=== PATIENT | female | born 1960 | race Caucasian/White ===

== ENCOUNTER 2017-04-08 17:30 | Emergency (ER) | payer MEDICARE, MEDICAID ==
[~2017-04-08] VITALS: Ht 175.3 cm; Wt 72.7 kg
[~2017-04-08 17:30] MED LIST: ALPR-164 PO; AMLO2.5T PO; ASPI-1265 PO; ATOR10TA70 PO; CEPH500C5 PO; COU5T PO; DICY10CA88 PO; DOCU250C87 PO; ENOX60SY7 SQ; EPIN0.3P8 IM; FAMO10TA89 PO; HYDR-3972 PO; LISI10TA4 PO; PHEN-873 PO; SOTA80TA69 PO; TRAM50TA2 PO; TRAZ-146 PO
[2017-04-08] MEDS ORDERED: ipratropium/albuterol 3ml nebule NEB ONE (17:55)
[2017-04-08 18:12] LABS: BASOPHILS % (AUTO) 0.2 % (0-1); EOSINOPHILS # (AUTO) 0.1 X10'3 (0-0.9); EOSINOPHILS % (AUTO) 0.9 % (0-6); HEMATOCRIT 39.9 % (35.0-45.0); HEMOGLOBIN 14.1 g/dl (12.0-16.0); LYMPHOCYTES # (AUTO) 2.1 X10'3 (1.1-4.8); LYMPHOCYTES % (AUTO) 19.1 % (21-51); MEAN CORPUSCULAR HEMOGLOBIN 32.4 PG (27.0-31.0); MEAN CORPUSCULAR HGB CONC 35.5 % (33.0-36.5); MEAN CORPUSCULAR VOLUME 91.3 FL (78-98); MEAN PLATELET VOLUME 7.2 FL (7.4-10.4); MONOCYTES # (AUTO) 0.8 X10'3 (0-0.9); NEUTROPHILS # (AUTO) 7.9 X10'3 (1.8-7.7); NEUTROPHILS % (AUTO) 72.8 % (42-75); PLATELET COUNT 323 X10'3 (140-440); RED BLOOD COUNT 4.37 X10'6 (4.20-5.60); WHITE BLOOD COUNT 10.8 X10'3 (4.5-11.0)
[2017-04-08 18:21] LABS: INR 3.1 INR; PROTHROMBIN TIME 31.1 SECONDS (9.0-12.0)
[2017-04-08 18:27] LABS: ALANINE AMINOTRANSFERASE 14 U/L (12-78); ALBUMIN 4.1 G/DL (3.4-5.0); ALKALINE PHOSPHATASE 88 IU/L (46-116); ANION GAP 10 (8-16); ASPARTATE AMINO TRANSFERASE 17 U/L (10-37); BILIRUBIN,TOTAL 0.3 MG/DL (0.1-1.0); BLOOD UREA NITROGEN 13 MG/DL (7-18); BUN/CREATININE RATIO 11.8 (6.6-38.0); CALCIUM 9.8 MG/DL (8.5-10.1); CHLORIDE 102 MMOL/L (99-107); GLUCOSE 93 MG/DL (70-104); POTASSIUM 3.5 MMOL/L (3.5-5.1); SODIUM 142 MMOL/L (135-145); TOTAL CARBON DIOXIDE 30.3 MMOL/L (24-32); TOTAL PROTEIN 8.4 G/DL (6.4-8.2); eGFR 51 ML/MIN
[2017-04-08] MEDS ORDERED: NICO-687 TOP (19:08)
[2017-04-08] MEDS ORDERED: LEVO500T89 PO (19:08)
[2017-04-08] MEDS ORDERED: METR500T4 PO (19:08)
[2017-04-08] MEDS ORDERED: GUAI600T45 PO (19:08)
[2017-04-08 20:38] VITALS: BP 115/79
== END 2017-04-08 20:40 | disposition home or self-care (01) ==
LOC: ER 17:30
DX: K52.9 Noninfective gastroenteritis and colitis, unspecified (principal); J06.9 Acute upper respiratory infection, unspecified; F17.210 Nicotine dependence, cigarettes, uncomplicated; E11.9 Type 2 diabetes mellitus without complications; I25.10 Atherosclerotic heart disease of native coronary artery without angina pectoris; I10 Essential (primary) hypertension; I25.2 Old myocardial infarction; K21.9 Gastro-esophageal reflux disease without esophagitis; G89.29 Other chronic pain; I49.9 Cardiac arrhythmia, unspecified; F12.10 Cannabis abuse, uncomplicated; Z90.49 Acquired absence of other specified parts of digestive tract; Z71.6 Tobacco abuse counseling; Z90.710 Acquired absence of both cervix and uterus; Z95.0 Presence of cardiac pacemaker; Z85.89 Personal history of malignant neoplasm of other organs and systems; Z88.5 Allergy status to narcotic agent; Z88.8 Allergy status to other drugs, medicaments and biological substances; Z79.82 Long term (current) use of aspirin; Z79.899 Other long term (current) drug therapy; Z79.01 Long term (current) use of anticoagulants
CPT/HCPCS: 36415; 71045; 74176; 80053; 84484; 85025; 85610; 87502; 87503; 93005; 94640; 94760; 99285; 99406

== ENCOUNTER 2017-05-08 23:25 | Inpatient (IN) | payer MEDICARE, MEDICAID ==
[~2017-05-08] VITALS: Ht 175.3 cm; Wt 76.5 kg
[~2017-05-08 23:25] MED LIST changes: -CEPH500C5 PO; +GUAI600T45 PO; +METR500T4 PO
[2017-05-08] MEDS ORDERED: normal saline 1000ML IV soln IVB ONE (23:45)
[2017-05-08] MEDS ORDERED: LORazepam 2 mg/ml vial IV ONE (23:45)
[2017-05-08] MEDS ORDERED: magnesium 2GM in 50ml NS 50 ML IV ONE (23:45)
[2017-05-08] MEDS ORDERED: diltiazem 5mg/ml 5ml inj. IV ONE (23:50)
[2017-05-09 00:08] LABS: BASOPHILS # (AUTO) 0.1 X10'3 (0-0.2); BASOPHILS % (AUTO) 1.4 % (0-1); EOSINOPHILS # (AUTO) 0.3 X10'3 (0-0.9); EOSINOPHILS % (AUTO) 3.3 % (0-6); HEMATOCRIT 36.2 % (35.0-45.0); HEMOGLOBIN 12.9 g/dl (12.0-16.0); LYMPHOCYTES # (AUTO) 2.4 X10'3 (1.1-4.8); MEAN CORPUSCULAR HEMOGLOBIN 31.5 PG (27.0-31.0); MEAN CORPUSCULAR HGB CONC 35.7 % (33.0-36.5); MEAN CORPUSCULAR VOLUME 88.3 FL (78-98); MEAN PLATELET VOLUME 8.1 FL (7.4-10.4); MONOCYTES # (AUTO) 0.4 X10'3 (0-0.9); MONOCYTES % (AUTO) 5.5 % (2-12); NEUTROPHILS # (AUTO) 4.7 X10'3 (1.8-7.7); NEUTROPHILS % (AUTO) 58.8 % (42-75); PLATELET COUNT 222 X10'3 (140-440); RED CELL DISTRIBUTION WIDTH 12.3 % (11.5-14.5); WHITE BLOOD COUNT 7.9 X10'3 (4.5-11.0)
[2017-05-09 00:29] LABS: ALANINE AMINOTRANSFERASE 21 U/L (12-78); ALBUMIN 3.9 G/DL (3.4-5.0); ALBUMIN/GLOBULIN RATIO 1.1 (1.1-1.5); ALKALINE PHOSPHATASE 76 IU/L (46-116); ANION GAP 9 (8-16); ASPARTATE AMINO TRANSFERASE 18 U/L (10-37); BILIRUBIN,TOTAL 0.2 MG/DL (0.1-1.0); BLOOD UREA NITROGEN 15 MG/DL (7-18); BUN/CREATININE RATIO 12.4 (6.6-38.0); CALCIUM 8.9 MG/DL (8.5-10.1); CHLORIDE 103 MMOL/L (99-107); CREATININE 1.21 MG/DL (0.40-0.90); GLUCOSE 216 MG/DL (70-104); POTASSIUM 3.3 MMOL/L (3.5-5.1); SODIUM 141 MMOL/L (135-145); TOTAL CARBON DIOXIDE 28.6 MMOL/L (24-32); TOTAL PROTEIN 7.6 G/DL (6.4-8.2); eGFR 46 ML/MIN
[2017-05-09 00:42] LABS: INR 1.8 INR; PARTIAL THROMBOPLASTIN TIME 27 SECONDS (22-32); PROTHROMBIN TIME 17.8 SECONDS (9.0-12.0)
[2017-05-09] MEDS ORDERED: diltiazem 30mg tablet PO ONE (01:05)
[2017-05-09] MEDS ORDERED: HYDR12.55 PO (01:45)
[2017-05-09] MEDS ORDERED: magnesium hydroxide 30ml (MOM) UD suspension PO PRN (02:40)
[2017-05-09] MEDS ORDERED: acetaminophen 325mg tablet PO PRN (02:40)
[2017-05-09] MEDS ORDERED: albuterol 2.5 MG/3 ML nebule NEB PRN (02:40)
[2017-05-09] MEDS ORDERED: mag hydrox/Alum hydrox/simeth 30ml oral suspension PO PRN (02:40)
[2017-05-09] MEDS ORDERED: magnesium 4gm in 100ml NS 100 ML IV PRN (02:40)
[2017-05-09] MEDS ORDERED: potassium Cl 20 mEq SR tablet PO PRN (02:40)
[2017-05-09] MEDS ORDERED: magnesium Cl slow-release 64mg tablet PO PRN (02:40)
[2017-05-09] MEDS ORDERED: magnesium 2GM in 50ml NS 50 ML IV PRN (02:40)
[2017-05-09] MEDS ORDERED: potassium Cl 40MEQ/NS 500ml 500 ML IV PRN ×2 (02:40)
[2017-05-09] MEDS ORDERED: ipratropium/albuterol 3ml nebule NEB PRN (02:40)
[2017-05-09] MEDS ORDERED: ondansetron/PF 4mg/2ml inj IV PRN (02:40)
[2017-05-09 03:04] LABS: HEMOGLOBIN A1C 5.6 % (4.5-6.2)
[2017-05-09] MEDS ORDERED: ALPRAZolam 0.5mg tablet PO PRN (03:45)
[2017-05-09] MEDS: potassium Cl 20mEq in NS 1,000 ML IV SCH ×2 (03:56→15:08)
[2017-05-09] MEDS: potassium Cl 20 mEq SR tablet PO PRN ×3 (07:25→18:28)
[2017-05-09] MEDS: famotidine 20mg tablet PO SCH ×2 (07:25→21:34)
[2017-05-09] MEDS: K and/or MAG REPLACEMENT MC SCH (07:25)
[2017-05-09] MEDS ORDERED: amLODIPine 2.5mg tablet PO SCH ×2 (08:00→08:03)
[2017-05-09] MEDS ORDERED: HYDROchlorothiazide 12.5mg capsule PO SCH ×2 (08:00→08:03)
[2017-05-09] MEDS ORDERED: sotalol 80mg tablet PO SCH (08:00)
[2017-05-09] MEDS ORDERED: atorvastatin 10mg tablet PO SCH ×2 (08:00→08:03)
[2017-05-09 11:11] LABS: INR 2.2 INR; PROTHROMBIN TIME 21.2 SECONDS (9.0-12.0)
[2017-05-09] MEDS ORDERED: AMLO10TA13 PO (14:52)
[2017-05-09] MEDS ORDERED: LISI40TA4 PO (14:59)
[2017-05-09] MEDS ORDERED: WARF3TAB PO (14:59)
[2017-05-09] MEDS ORDERED: WARF-55 PO (14:59)
[2017-05-09] MEDS ORDERED: OMEP-50 PO (14:59)
[2017-05-09] MEDS ORDERED: SOTA80TA PO (15:00)
[2017-05-09] MEDS ORDERED: HYDROcodone/acetaminophen 10/325mg tab PO PRN (16:45)
[2017-05-09] MEDS ORDERED: docusate sod 250mg capsule PO PRN (16:45)
[2017-05-09 19:00] VITALS: BP 142/66
[2017-05-09] MEDS ORDERED: warfarin 5mg tablet PO SCH (21:00)
[2017-05-09] MEDS: sotalol 80mg tablet PO SCH (21:33)
[2017-05-09 22:00] VITALS: BP 141/49
[2017-05-10 06:00] VITALS: BP 151/58
[2017-05-10 06:34] LABS: EOSINOPHILS # (AUTO) 0.2 X10'3 (0-0.9); EOSINOPHILS % (AUTO) 3.5 % (0-6); HEMATOCRIT 30.1 % (35.0-45.0); HEMOGLOBIN 10.6 g/dl (12.0-16.0); LYMPHOCYTES % (AUTO) 40.5 % (21-51); MEAN CORPUSCULAR HEMOGLOBIN 30.9 PG (27.0-31.0); MEAN CORPUSCULAR HGB CONC 35.2 % (33.0-36.5); MEAN CORPUSCULAR VOLUME 87.9 FL (78-98); MEAN PLATELET VOLUME 7.8 FL (7.4-10.4); MONOCYTES # (AUTO) 0.4 X10'3 (0-0.9); MONOCYTES % (AUTO) 7.6 % (2-12); NEUTROPHILS # (AUTO) 2.4 X10'3 (1.8-7.7); NEUTROPHILS % (AUTO) 47.4 % (42-75); PLATELET COUNT 185 X10'3 (140-440); RED BLOOD COUNT 3.42 X10'6 (4.20-5.60); RED CELL DISTRIBUTION WIDTH 13.1 % (11.5-14.5)
[2017-05-10 06:48] LABS: INR 1.9 INR; PROTHROMBIN TIME 18.8 SECONDS (9.0-12.0)
[2017-05-10 07:06] LABS: ALANINE AMINOTRANSFERASE 21 U/L (12-78); ALBUMIN 3.3 G/DL (3.4-5.0); ALBUMIN/GLOBULIN RATIO 1.1 (1.1-1.5); ALKALINE PHOSPHATASE 60 IU/L (46-116); ANION GAP 8 (8-16); ASPARTATE AMINO TRANSFERASE 19 U/L (10-37); BILIRUBIN,TOTAL 0.2 MG/DL (0.1-1.0); BLOOD UREA NITROGEN 14 MG/DL (7-18); BUN/CREATININE RATIO 13.3 (6.6-38.0); CALCIUM 8.7 MG/DL (8.5-10.1); CHLORIDE 109 MMOL/L (99-107); CHOLESTEROL 137 MG/DL (0-200); CREATININE 1.05 MG/DL (0.40-0.90); GLUCOSE 121 MG/DL (70-104); HDL CHOLESTEROL 23 MG/DL (35-60); LDL CHOLESTEROL 68 MG/DL (50-100); MAGNESIUM 1.9 MG/DL (1.5-2.4); POTASSIUM 4.2 MMOL/L (3.5-5.1); SODIUM 145 MMOL/L (135-145); TOTAL CARBON DIOXIDE 28.3 MMOL/L (24-32); TOTAL PROTEIN 6.4 G/DL (6.4-8.2); TRIGLYCERIDES 353 MG/DL (20-135); eGFR 54 ML/MIN
[2017-05-10] MEDS: famotidine 20mg tablet PO SCH (07:58)
[2017-05-10] MEDS: sotalol 80mg tablet PO SCH (07:58)
[2017-05-10] MEDS ORDERED: amLODIPine 5mg tablet PO SCH (08:00)
[2017-05-10] MEDS ORDERED: lisinopril 20mg tablet PO SCH (08:00)
[2017-05-10] MEDS: K and/or MAG REPLACEMENT MC SCH (08:00)
[2017-05-10 11:00] VITALS: BP 147/49
[2017-05-10] MEDS ORDERED: FENO160T13 PO (13:06)
== END 2017-05-10 15:00 | disposition home or self-care (01) | DRG 206 ==
LOC: ER 23:26 → ED HOLD 05-09 02:36 → PCU 3S 05-09 19:00
PROVIDERS: ADMIT Internal Medicine; ATTEND Family Medicine
DX: M94.0 Chondrocostal junction syndrome [Tietze] (principal); D68.9 Coagulation defect, unspecified; I48.91 Unspecified atrial fibrillation; E87.6 Hypokalemia; E78.5 Hyperlipidemia, unspecified; I10 Essential (primary) hypertension; I25.10 Atherosclerotic heart disease of native coronary artery without angina pectoris; K21.9 Gastro-esophageal reflux disease without esophagitis; R73.9 Hyperglycemia, unspecified; N28.9 Disorder of kidney and ureter, unspecified; T45.515A Adverse effect of anticoagulants, initial encounter; F41.9 Anxiety disorder, unspecified; G89.29 Other chronic pain; M19.90 Unspecified osteoarthritis, unspecified site; F17.210 Nicotine dependence, cigarettes, uncomplicated; I25.2 Old myocardial infarction; Z90.49 Acquired absence of other specified parts of digestive tract; Z90.710 Acquired absence of both cervix and uterus; Z95.0 Presence of cardiac pacemaker; Z88.5 Allergy status to narcotic agent; Z88.0 Allergy status to penicillin; Z88.2 Allergy status to sulfonamides; Z88.8 Allergy status to other drugs, medicaments and biological substances; Z79.01 Long term (current) use of anticoagulants; Z79.899 Other long term (current) drug therapy; Z85.41 Personal history of malignant neoplasm of cervix uteri; Z83.3 Family history of diabetes mellitus
CPT/HCPCS: 36415; 71045; 80053; 80061; 82948; 83036; 83735; 83880; 84484; 85025; 85610; 85730; 87070; 93306; 94760; 96365; 96375; 99285; J2060; J3475; J3490

== ENCOUNTER 2017-08-12 14:32 | Emergency (ER) | payer MEDICARE, MEDICAID ==
[~2017-08-12] VITALS: Ht 170.2 cm; Wt 78.0 kg
[~2017-08-12 14:32] MED LIST changes: -ALPR-164 PO; +AMLO10TA13 PO; -AMLO2.5T PO; -ASPI-1265 PO; -COU5T PO; -DICY10CA88 PO; -ENOX60SY7 SQ; -EPIN0.3P8 IM; +FENO160T13 PO; -GUAI600T45 PO; +HYDR12.55 PO; -LISI10TA4 PO; +LISI40TA4 PO; -METR500T4 PO; +OMEP-50 PO; -PHEN-873 PO; +SOTA80TA PO; -SOTA80TA69 PO; -TRAM50TA2 PO; -TRAZ-146 PO; +WARF-55 PO; +WARF3TAB PO
[2017-08-12] MEDS ORDERED: etomidate 2mg/ml inj. IV ONE (14:45)
[2017-08-12] MEDS ORDERED: normal saline 1000ML IV soln IVB ONE (14:45)
[2017-08-12 15:09] LABS: BASOPHILS # (AUTO) 0.1 X10'3 (0-0.2); EOSINOPHILS # (AUTO) 0.2 X10'3 (0-0.9); EOSINOPHILS % (AUTO) 1.5 % (0-6); HEMATOCRIT 33.9 % (35.0-45.0); HEMOGLOBIN 11.6 g/dl (12.0-16.0); LYMPHOCYTES # (AUTO) 3.2 X10'3 (1.1-4.8); LYMPHOCYTES % (AUTO) 26.2 % (21-51); MEAN CORPUSCULAR HEMOGLOBIN 27.1 PG (27.0-31.0); MEAN CORPUSCULAR HGB CONC 34.1 % (33.0-36.5); MEAN CORPUSCULAR VOLUME 79.5 FL (78-98); MEAN PLATELET VOLUME 8.6 FL (7.4-10.4); NEUTROPHILS # (AUTO) 7.6 X10'3 (1.8-7.7); NEUTROPHILS % (AUTO) 63.3 % (42-75); PLATELET COUNT 376 X10'3 (140-440); RED BLOOD COUNT 4.27 X10'6 (4.20-5.60); RED CELL DISTRIBUTION WIDTH 15.7 % (11.5-14.5)
[2017-08-12] MEDS ORDERED: morphine 4 MG/ML inj SYRINge IV ONE (15:15)
[2017-08-12] MEDS ORDERED: LORazepam 2 mg/ml vial ONE (15:16)
[2017-08-12 15:18] LABS: INR 2.1 INR; PROTHROMBIN TIME 20.8 SECONDS (9.0-12.0)
[2017-08-12 15:26] LABS: ALANINE AMINOTRANSFERASE 16 U/L (12-78); ALBUMIN 3.8 G/DL (3.4-5.0); ALKALINE PHOSPHATASE 94 IU/L (46-116); ANION GAP 11 (8-16); ASPARTATE AMINO TRANSFERASE 22 U/L (10-37); BILIRUBIN,TOTAL 0.2 MG/DL (0.1-1.0); BLOOD UREA NITROGEN 16 MG/DL (7-18); BUN/CREATININE RATIO 9.2 (6.6-38.0); CHLORIDE 103 MMOL/L (99-107); CREATININE 1.74 MG/DL (0.40-0.90); GLUCOSE 134 MG/DL (70-104); MAGNESIUM 1.9 MG/DL (1.5-2.4); POTASSIUM 3.9 MMOL/L (3.5-5.1); SODIUM 141 MMOL/L (135-145); TOTAL CARBON DIOXIDE 27.2 MMOL/L (24-32); TOTAL PROTEIN 7.7 G/DL (6.4-8.2); eGFR 30 ML/MIN
[2017-08-12 16:29] VITALS: BP 100/59
== END 2017-08-12 16:29 | disposition home or self-care (01) ==
LOC: ER 14:32
DX: I48.91 Unspecified atrial fibrillation (principal); I95.9 Hypotension, unspecified; I25.10 Atherosclerotic heart disease of native coronary artery without angina pectoris; I10 Essential (primary) hypertension; I25.2 Old myocardial infarction; K21.9 Gastro-esophageal reflux disease without esophagitis; E11.9 Type 2 diabetes mellitus without complications; G89.29 Other chronic pain; F12.90 Cannabis use, unspecified, uncomplicated; Z85.89 Personal history of malignant neoplasm of other organs and systems; Z90.49 Acquired absence of other specified parts of digestive tract; Z90.710 Acquired absence of both cervix and uterus; Z95.0 Presence of cardiac pacemaker; Z88.0 Allergy status to penicillin; Z88.2 Allergy status to sulfonamides; Z88.8 Allergy status to other drugs, medicaments and biological substances; Z79.899 Other long term (current) drug therapy; Z79.01 Long term (current) use of anticoagulants
CPT/HCPCS: 36415; 71045; 80053; 83735; 84484; 85025; 85610; 92960; 93005; 96374; 99285; J2270; J3490; J2060

== ENCOUNTER 2017-09-15 20:09 | Emergency (ER) | payer MEDICARE, MEDICAID ==
[~2017-09-15] VITALS: Ht 597.6 cm; Wt 82.3 kg
[2017-09-15 20:13] VITALS: BP 165/54
== END 2017-09-15 21:44 | disposition home or self-care (01) ==
LOC: ER 20:10
DX: R04.0 Epistaxis (principal); I48.91 Unspecified atrial fibrillation; I25.10 Atherosclerotic heart disease of native coronary artery without angina pectoris; I10 Essential (primary) hypertension; I25.2 Old myocardial infarction; K21.9 Gastro-esophageal reflux disease without esophagitis; E11.9 Type 2 diabetes mellitus without complications; G89.29 Other chronic pain; F12.90 Cannabis use, unspecified, uncomplicated; Z95.0 Presence of cardiac pacemaker; Z90.49 Acquired absence of other specified parts of digestive tract; Z98.890 Other specified postprocedural states; Z90.710 Acquired absence of both cervix and uterus; Z88.8 Allergy status to other drugs, medicaments and biological substances; Z88.0 Allergy status to penicillin; Z88.2 Allergy status to sulfonamides; Z88.5 Allergy status to narcotic agent; Z79.899 Other long term (current) drug therapy; Z79.01 Long term (current) use of anticoagulants
CPT/HCPCS: 99281

== ENCOUNTER 2017-11-20 14:12 | Emergency (ER) | payer MEDICARE, MEDICAID ==
[~2017-11-20] VITALS: Ht 175.3 cm; Wt 80.0 kg
[2017-11-20 14:39] LABS: BASOPHILS # (AUTO) 0.1 X10'3 (0-0.2); BASOPHILS % (AUTO) 0.7 % (0-1); EOSINOPHILS # (AUTO) 0.1 X10'3 (0-0.9); EOSINOPHILS % (AUTO) 0.6 % (0-6); HEMOGLOBIN 10.2 g/dl (12.0-16.0); LYMPHOCYTES # (AUTO) 1.9 X10'3 (1.1-4.8); LYMPHOCYTES % (AUTO) 11.7 % (21-51); MEAN CORPUSCULAR HEMOGLOBIN 22.2 PG (27.0-31.0); MEAN CORPUSCULAR HGB CONC 32.7 % (33.0-36.5); MEAN CORPUSCULAR VOLUME 67.9 FL (78-98); MEAN PLATELET VOLUME 7.4 FL (7.4-10.4); MONOCYTES # (AUTO) 1.1 X10'3 (0-0.9); MONOCYTES % (AUTO) 7.1 % (2-12); NEUTROPHILS # (AUTO) 12.9 X10'3 (1.8-7.7); NEUTROPHILS % (AUTO) 79.9 % (42-75); PLATELET COUNT 345 X10'3 (140-440); RED BLOOD COUNT 4.57 X10'6 (4.20-5.60); RED CELL DISTRIBUTION WIDTH 17.6 % (11.5-14.5); WHITE BLOOD COUNT 16.1 X10'3 (4.5-11.0)
[2017-11-20] MEDS ORDERED: normal saline 1000ML IV soln IV ONE (14:40)
[2017-11-20] MEDS ORDERED: morphine 4 MG/ML inj SYRINge IV ONE (14:40)
[2017-11-20] MEDS ORDERED: ondansetron/PF 4mg/2ml inj IV ONE (14:40)
[2017-11-20 14:46] LABS: URINE HCG NEGATIVE (NEG)
[2017-11-20 14:47] LABS: INR 3.4 INR; PROTHROMBIN TIME 34.1 SECONDS (9.0-12.0)
[2017-11-20 14:51] LABS: CLARITY,URINE CLEAR (Clear); COLOR,URINE YELLOW (Yellow); GLUCOSE, URINE NEGATIVE (Neg); KETONES,URINE NEGATIVE (Neg); LEUKOCYTE ESTERASE ,URINE NEGATIVE (Neg); NITRITES, URINE NEGATIVE (Neg); OCCULT BLOOD,URINE TRACE-INTACT (Neg); PROTEIN,URINE NEGATIVE (Neg); UROBILINOGEN,URINE 0.2 E.U/dL (0.2-1.0)
[2017-11-20 14:54] LABS: UA COLLECTION TYPE CLN CATCH MIDSTREAM
[2017-11-20 15:00] LABS: ALANINE AMINOTRANSFERASE 16 U/L (12-78); ALBUMIN 4.1 G/DL (3.4-5.0); ALBUMIN/GLOBULIN RATIO 1.1 (1.1-1.5); ALKALINE PHOSPHATASE 113 IU/L (46-116); ANION GAP 13 (8-16); ASPARTATE AMINO TRANSFERASE 20 U/L (10-37); BILIRUBIN,TOTAL 0.3 MG/DL (0.1-1.0); BLOOD UREA NITROGEN 16 MG/DL (7-18); BUN/CREATININE RATIO 11.1 (6.6-38.0); CALCIUM 9.4 MG/DL (8.5-10.1); CHLORIDE 101 MMOL/L (99-107); CREATININE 1.44 MG/DL (0.40-0.90); GLUCOSE 137 MG/DL (70-104); POTASSIUM 3.8 MMOL/L (3.5-5.1); SODIUM 140 MMOL/L (135-145); TOTAL CARBON DIOXIDE 25.8 MMOL/L (24-32); TOTAL PROTEIN 7.9 G/DL (6.4-8.2); eGFR 37 ML/MIN
[2017-11-20 15:02] LABS: BACTERIA,URINE NONE SEEN /HPF (Neg); RBC,URINE NONE SEEN /HPF (0-2); SQUAMOUS EPITHELIAL CELL,UR FEW /LPF (FEW); WBC,URINE 0-4 /HPF (0-4)
[2017-11-20] MEDS ORDERED: HYDR-569 PO (15:28)
[2017-11-20] MEDS ORDERED: CIPR-259 PO (15:28)
[2017-11-20] MEDS ORDERED: ONDA4TAB9 SL (15:28)
[2017-11-20] MEDS ORDERED: METR250T PO (15:28)
[2017-11-20 16:37] VITALS: BP 109/59
[2017-11-20 17:56] LABS: ANISOCYTOSIS 2+; PLATELET ESTIMATE NORMAL
[2017-11-20 17:57] LABS: ELLIPTOCYTES FEW; MICROCYTOSIS 2+; POLYCHROMASIA FEW; SCHISTOCYTES FEW
== END 2017-11-20 16:39 | disposition home or self-care (01) ==
LOC: ER 14:12
DX: K57.92 Diverticulitis of intestine, part unspecified, without perforation or abscess without bleeding (principal); I10 Essential (primary) hypertension; I48.91 Unspecified atrial fibrillation; I25.10 Atherosclerotic heart disease of native coronary artery without angina pectoris; I25.2 Old myocardial infarction; K21.9 Gastro-esophageal reflux disease without esophagitis; E11.9 Type 2 diabetes mellitus without complications; G89.29 Other chronic pain; F12.90 Cannabis use, unspecified, uncomplicated; F17.210 Nicotine dependence, cigarettes, uncomplicated; Z90.49 Acquired absence of other specified parts of digestive tract; Z90.710 Acquired absence of both cervix and uterus; Z95.0 Presence of cardiac pacemaker; Z88.6 Allergy status to analgesic agent; Z88.1 Allergy status to other antibiotic agents; Z88.2 Allergy status to sulfonamides; Z88.8 Allergy status to other drugs, medicaments and biological substances
CPT/HCPCS: 36415; 80053; 81001; 81025; 83605; 85025; 85610; 87040; 96361; 96374; 96375; 99284; J2270; J2405; J7030

== ENCOUNTER 2017-12-19 17:30 | Emergency (ER) | payer MEDICARE, MEDICAID ==
[~2017-12-19] VITALS: Ht 175.3 cm; Wt 78.0 kg
[~2017-12-19 17:30] MED LIST changes: +HYDR-4383 PO
[2017-12-19 18:27] LABS: BASOPHILS # (AUTO) 0.1 X10'3 (0-0.2); EOSINOPHILS # (AUTO) 0.2 X10'3 (0-0.9); HEMATOCRIT 29.4 % (35.0-45.0); HEMOGLOBIN 9.4 g/dl (12.0-16.0); LYMPHOCYTES # (AUTO) 1.9 X10'3 (1.1-4.8); LYMPHOCYTES % (AUTO) 24.6 % (21-51); MEAN CORPUSCULAR HEMOGLOBIN 22.9 PG (27.0-31.0); MEAN CORPUSCULAR HGB CONC 31.9 % (33.0-36.5); MEAN CORPUSCULAR VOLUME 71.8 FL (78-98); MEAN PLATELET VOLUME 7.5 FL (7.4-10.4); MONOCYTES # (AUTO) 0.5 X10'3 (0-0.9); MONOCYTES % (AUTO) 5.8 % (2-12); NEUTROPHILS # (AUTO) 5.2 X10'3 (1.8-7.7); NEUTROPHILS % (AUTO) 65.6 % (42-75); PLATELET COUNT 295 X10'3 (140-440); RED BLOOD COUNT 4.09 X10'6 (4.20-5.60); RED CELL DISTRIBUTION WIDTH 18.3 % (11.5-14.5); WHITE BLOOD COUNT 7.9 X10'3 (4.5-11.0)
[2017-12-19 19:05] LABS: INR 1.6 INR; PARTIAL THROMBOPLASTIN TIME 29 SECONDS (22-32); PROTHROMBIN TIME 15.8 SECONDS (9.0-12.0)
[2017-12-19 19:06] LABS: ALANINE AMINOTRANSFERASE 15 U/L (12-78); ALBUMIN 3.9 G/DL (3.4-5.0); ALBUMIN/GLOBULIN RATIO 1.1 (1.1-1.5); ALKALINE PHOSPHATASE 80 IU/L (46-116); ANION GAP 13 (8-16); ASPARTATE AMINO TRANSFERASE 19 U/L (10-37); BILIRUBIN,TOTAL 0.3 MG/DL (0.1-1.0); BLOOD UREA NITROGEN 21 MG/DL (7-18); BUN/CREATININE RATIO 12.7 (6.6-38.0); CALCIUM 9.2 MG/DL (8.5-10.1); CHLORIDE 101 MMOL/L (99-107); CREATININE 1.66 MG/DL (0.40-0.90); GLUCOSE 173 MG/DL (70-104); POTASSIUM 3.8 MMOL/L (3.5-5.1); SODIUM 139 MMOL/L (135-145); TOTAL CARBON DIOXIDE 25.5 MMOL/L (24-32); TOTAL PROTEIN 7.4 G/DL (6.4-8.2); eGFR 32 ML/MIN
[2017-12-19 19:29] VITALS: BP 111/69
[2017-12-19 19:33] LABS: COLOR,URINE YELLOW (Yellow); GLUCOSE, URINE NEGATIVE (Neg); KETONES,URINE NEGATIVE (Neg); LEUKOCYTE ESTERASE ,URINE TRACE (Neg); NITRITES, URINE NEGATIVE (Neg); OCCULT BLOOD,URINE NEGATIVE (Neg); PH,URINE 5.5 (4.8-8.0); PROTEIN,URINE NEGATIVE (Neg); UROBILINOGEN,URINE 0.2 E.U/dL (0.2-1.0)
[2017-12-19 19:45] LABS: CLARITY,URINE SLIGHTLY CLOUDY (Clear); UA COLLECTION TYPE VOIDED
[2017-12-19 19:46] LABS: BACTERIA,URINE FEW /HPF (Neg); RBC,URINE NONE SEEN /HPF (0-2); SQUAMOUS EPITHELIAL CELL,UR FEW /LPF (FEW); WBC,URINE 0-4 /HPF (0-4)
== END 2017-12-19 20:07 | disposition home or self-care (01) ==
LOC: ER 17:31
DX: R42 Dizziness and giddiness (principal); D64.9 Anemia, unspecified; I48.91 Unspecified atrial fibrillation; I25.10 Atherosclerotic heart disease of native coronary artery without angina pectoris; I10 Essential (primary) hypertension; I25.2 Old myocardial infarction; K21.9 Gastro-esophageal reflux disease without esophagitis; E11.9 Type 2 diabetes mellitus without complications; G89.29 Other chronic pain; F12.90 Cannabis use, unspecified, uncomplicated; Z90.49 Acquired absence of other specified parts of digestive tract; Z90.710 Acquired absence of both cervix and uterus; Z95.0 Presence of cardiac pacemaker; Z88.0 Allergy status to penicillin; Z88.2 Allergy status to sulfonamides; Z88.5 Allergy status to narcotic agent; Z88.1 Allergy status to other antibiotic agents; Z91.048 Other nonmedicinal substance allergy status; Z88.8 Allergy status to other drugs, medicaments and biological substances; Z79.01 Long term (current) use of anticoagulants; Z79.899 Other long term (current) drug therapy
CPT/HCPCS: 36415; 71045; 80053; 81001; 84484; 85025; 85610; 85730; 87088; 93005; 99285

== ENCOUNTER 2018-10-05 16:14 | Emergency (ER) | payer MEDICARE, MEDICAID ==
[~2018-10-05] VITALS: Ht 175.3 cm; Wt 80.9 kg
--- NOTE | 2018-10-05 16:53 | NUR ---
Eveline HUDSON PA AT BEDSIDE TO EVAL PT, PT REFERRED FROM PMD TO R/O DIVERICULITIS
[2018-10-05 17:00] LABS: URINE HCG NEGATIVE (NEG)
[2018-10-05] MEDS ORDERED: ondansetron/PF 4mg/2ml inj IV ONE ×2 (17:00→18:25)
[2018-10-05] MEDS ORDERED: normal saline 1000ML IV soln IVB ONE (17:00)
[2018-10-05 17:01] LABS: BASOPHILS # (AUTO) 0.1 X10'3 (0-0.2); EOSINOPHILS # (AUTO) 0.2 X10'3 (0-0.9); EOSINOPHILS % (AUTO) 2.3 % (0-6); HEMATOCRIT 40.9 % (35.0-45.0); HEMOGLOBIN 14.7 g/dl (12.0-16.0); LYMPHOCYTES # (AUTO) 2.6 X10'3 (1.1-4.8); LYMPHOCYTES % (AUTO) 27.4 % (21-51); MEAN CORPUSCULAR HEMOGLOBIN 33.8 PG (27.0-31.0); MEAN CORPUSCULAR HGB CONC 35.9 g/dL (33.0-36.5); MEAN PLATELET VOLUME 8.8 FL (7.4-10.4); MONOCYTES # (AUTO) 0.8 X10'3 (0-0.9); MONOCYTES % (AUTO) 8.7 % (2-12); NEUTROPHILS # (AUTO) 5.8 X10'3 (1.8-7.7); NEUTROPHILS % (AUTO) 60.6 % (42-75); PLATELET COUNT 216 X10'3 (140-440); RED BLOOD COUNT 4.35 X10'6 (4.20-5.60); RED CELL DISTRIBUTION WIDTH 13.6 % (11.5-14.5); WHITE BLOOD COUNT 9.5 X10'3 (4.5-11.0)
[2018-10-05 17:06] LABS: CLARITY,URINE SLIGHTLY CLOUDY (Clear); COLOR,URINE YELLOW (Yellow); GLUCOSE, URINE NEGATIVE (Neg); KETONES,URINE NEGATIVE (Neg); LEUKOCYTE ESTERASE ,URINE NEGATIVE (Neg); NITRITES, URINE NEGATIVE (Neg); OCCULT BLOOD,URINE SMALL (Neg); PH,URINE 5.5 (4.8-8.0); PROTEIN,URINE NEGATIVE (Neg); UROBILINOGEN,URINE 0.2 E.U/dL (0.2-1.0)
[2018-10-05] MEDS: morphine 4 MG/ML inj SYRINge IV PRN ×2 (17:06→17:33)
--- NOTE | 2018-10-05 17:08 | NUR ---
PT RECEIVING 1ST LITER NS, FAMILY AT BEDSIDE
[2018-10-05 17:10] LABS: UA COLLECTION TYPE CLN CATCH MIDSTREAM
[2018-10-05 17:11] LABS: ALANINE AMINOTRANSFERASE 21 U/L (12-78); ALBUMIN 4.1 G/DL (3.4-5.0); ALBUMIN/GLOBULIN RATIO 1.1 (1.1-1.5); ALKALINE PHOSPHATASE 66 IU/L (46-116); AMYLASE 62 U/L (25-115); ANION GAP 11 (8-16); ASPARTATE AMINO TRANSFERASE 15 U/L (10-37); BILIRUBIN,TOTAL 0.3 MG/DL (0.1-1.0); BLOOD UREA NITROGEN 15 MG/DL (7-18); BUN/CREATININE RATIO 13.4 (6.6-38.0); CHLORIDE 106 MMOL/L (99-107); CREATININE 1.12 MG/DL (0.40-0.90); GLUCOSE 116 MG/DL (70-104); LIPASE 172 U/L (73-393); SODIUM 144 MMOL/L (135-145); TOTAL CARBON DIOXIDE 27.4 MMOL/L (24-32); TOTAL PROTEIN 7.7 G/DL (6.4-8.2); eGFR 50 ML/MIN
[2018-10-05 17:29] VITALS: BP_SYST 167
[2018-10-05 17:31] LABS: WBC,URINE 0-4 /HPF (0-4)
[2018-10-05 17:32] LABS: BACTERIA,URINE NONE SEEN /HPF (Neg); SQUAMOUS EPITHELIAL CELL,UR FEW /LPF (FEW)
[2018-10-05] MEDS ORDERED: ketorolac trometh. 30mg/ml inj. IV ONE (18:25)
[2018-10-05] MEDS ORDERED: morphine 4 MG/ML inj SYRINge IV ONE (18:25)
[2018-10-05 18:55] VITALS: BP_DIAS 145
== END 2018-10-05 18:58 | disposition home or self-care (01) ==
LOC: ER 16:15
DX: R10.32 Left lower quadrant pain (principal); R50.9 Fever, unspecified; R11.2 Nausea with vomiting, unspecified; I48.91 Unspecified atrial fibrillation; I25.10 Atherosclerotic heart disease of native coronary artery without angina pectoris; I10 Essential (primary) hypertension; I25.2 Old myocardial infarction; K21.9 Gastro-esophageal reflux disease without esophagitis; E11.9 Type 2 diabetes mellitus without complications; G89.29 Other chronic pain; F12.90 Cannabis use, unspecified, uncomplicated; F17.200 Nicotine dependence, unspecified, uncomplicated; Z90.49 Acquired absence of other specified parts of digestive tract; Z90.710 Acquired absence of both cervix and uterus; Z95.0 Presence of cardiac pacemaker; Z98.890 Other specified postprocedural states; Z88.0 Allergy status to penicillin; Z88.2 Allergy status to sulfonamides; Z88.1 Allergy status to other antibiotic agents; Z88.5 Allergy status to narcotic agent; Z91.048 Other nonmedicinal substance allergy status; Z88.8 Allergy status to other drugs, medicaments and biological substances; Z79.01 Long term (current) use of anticoagulants; Z79.899 Other long term (current) drug therapy
CPT/HCPCS: 36415; 74176; 80053; 81001; 81025; 82150; 83690; 84145; 85025; 85610; 96361; 96374; 96375; 96376; 99284; J1885; J2270; J2405; J7030

== ENCOUNTER 2019-02-26 10:43 | Emergency (ER) | payer MEDICARE, MEDICAID ==
[~2019-02-26] VITALS: Ht 175.3 cm; Wt 85.0 kg
--- NOTE | 2019-02-26 10:57 | NUR ---
PROVIDER AT BEDSIDE TO EVAL PT, PT C/O SORE THROAT, HEADACHE, "HEAD FEELS FULL AND MY EARS NEED TO POP", NO PROBLEMS SWALLOWING, NO RESP DISTRESS, TALKING FULL SENTENCES
--- NOTE | 2019-02-26 11:25 | NUR ---
Fernando VALDEZ gave verbal order to irrigate rt ear, irrigated 500ml with warm water and hydrogen peroxide, pt jenny well, "my ears popped", no ear wax out
[2019-02-26] MEDS ORDERED: dexamethasone sod phosphate 10mg/ml inj PO STA (11:30)
[2019-02-26 12:00] VITALS: BP 163/76
== END 2019-02-26 12:01 | disposition home or self-care (01) ==
LOC: ER 10:44
DX: J02.8 Acute pharyngitis due to other specified organisms (principal); B97.89 Other viral agents as the cause of diseases classified elsewhere; I48.91 Unspecified atrial fibrillation; I25.10 Atherosclerotic heart disease of native coronary artery without angina pectoris; I10 Essential (primary) hypertension; I25.2 Old myocardial infarction; K21.9 Gastro-esophageal reflux disease without esophagitis; E11.9 Type 2 diabetes mellitus without complications; G89.29 Other chronic pain; F12.90 Cannabis use, unspecified, uncomplicated; Z90.49 Acquired absence of other specified parts of digestive tract; Z90.710 Acquired absence of both cervix and uterus; Z95.0 Presence of cardiac pacemaker; Z88.0 Allergy status to penicillin; Z88.2 Allergy status to sulfonamides; Z88.1 Allergy status to other antibiotic agents; Z88.6 Allergy status to analgesic agent; Z88.8 Allergy status to other drugs, medicaments and biological substances; Z79.01 Long term (current) use of anticoagulants; Z79.899 Other long term (current) drug therapy
CPT/HCPCS: 87081; 87880; 99283; J1100

== ENCOUNTER 2019-03-24 21:57 | Emergency (ER) | payer MEDICARE, MEDICAID ==
[~2019-03-24] VITALS: Ht 175.3 cm; Wt 80.0 kg
[2019-03-24 21:58] VITALS: BP 179/95
[2019-03-25] MEDS ORDERED: orphenadrine citrate 60mg/2ml inj. IM ONE (00:40)
[2019-03-25] MEDS ORDERED: ketorolac tromethamine 15mg/ml inj. IM ONE (00:40)
[2019-03-25] MEDS ORDERED: CYCL-1 PO (00:51)
== END 2019-03-25 01:20 | disposition home or self-care (01) ==
LOC: ER 21:57
DX: M62.838 Other muscle spasm (principal); M54.2 Cervicalgia; I48.91 Unspecified atrial fibrillation; I25.10 Atherosclerotic heart disease of native coronary artery without angina pectoris; I10 Essential (primary) hypertension; I25.2 Old myocardial infarction; K21.9 Gastro-esophageal reflux disease without esophagitis; E11.9 Type 2 diabetes mellitus without complications; F12.90 Cannabis use, unspecified, uncomplicated; G89.29 Other chronic pain; Z90.49 Acquired absence of other specified parts of digestive tract; Z90.710 Acquired absence of both cervix and uterus; Z95.0 Presence of cardiac pacemaker; Z88.0 Allergy status to penicillin; Z88.2 Allergy status to sulfonamides; Z88.6 Allergy status to analgesic agent; Z79.01 Long term (current) use of anticoagulants; Z79.899 Other long term (current) drug therapy
CPT/HCPCS: 96372; 99283; J1885; J2360

== ENCOUNTER 2019-06-09 01:40 | Emergency (ER) | payer MEDICARE, MEDICAID ==
[~2019-06-09] VITALS: Ht 175.3 cm; Wt 80.0 kg
[~2019-06-09 01:40] MED LIST changes: +CYCL-1 PO
[2019-06-09 02:27] LABS: BASOPHILS # (AUTO) 0.1 X10'3 (0-0.2); BASOPHILS % (AUTO) 1.3 % (0-1); EOSINOPHILS # (AUTO) 0.2 X10'3 (0-0.9); HEMATOCRIT 41.8 % (35.0-45.0); HEMOGLOBIN 14.9 g/dl (12.0-16.0); LYMPHOCYTES # (AUTO) 2.8 X10'3 (1.1-4.8); LYMPHOCYTES % (AUTO) 33.4 % (21-51); MEAN CORPUSCULAR HEMOGLOBIN 34.2 PG (27.0-31.0); MEAN CORPUSCULAR HGB CONC 35.6 g/dL (33.0-36.5); MEAN PLATELET VOLUME 8.4 FL (7.4-10.4); MONOCYTES # (AUTO) 0.7 X10'3 (0-0.9); MONOCYTES % (AUTO) 8.1 % (2-12); NEUTROPHILS # (AUTO) 4.7 X10'3 (1.8-7.7); NEUTROPHILS % (AUTO) 55.2 % (42-75); PLATELET COUNT 230 X10'3 (140-440); RED BLOOD COUNT 4.35 X10'6 (4.20-5.60); RED CELL DISTRIBUTION WIDTH 14.2 % (11.5-14.5); WHITE BLOOD COUNT 8.5 X10'3 (4.5-11.0)
[2019-06-09 02:34] LABS: ALANINE AMINOTRANSFERASE 23 U/L (12-78); ALBUMIN/GLOBULIN RATIO 1.2 (1.1-1.5); ALKALINE PHOSPHATASE 75 IU/L (46-116); ANION GAP 9 (8-16); ASPARTATE AMINO TRANSFERASE 19 U/L (10-37); BILIRUBIN,TOTAL 0.3 MG/DL (0.1-1.0); BLOOD UREA NITROGEN 15 MG/DL (7-18); CALCIUM 9.1 MG/DL (8.5-10.1); CHLORIDE 101 MMOL/L (99-107); CREATININE 1.25 MG/DL (0.40-0.90); GLUCOSE 282 MG/DL (70-104); LIPASE 183 U/L (73-393); POTASSIUM 3.4 MMOL/L (3.5-5.1); SODIUM 139 MMOL/L (135-145); TOTAL CARBON DIOXIDE 29.2 MMOL/L (24-32); TOTAL PROTEIN 7.4 G/DL (6.4-8.2); eGFR 44 ML/MIN
[2019-06-09 02:42] LABS: URINE HCG NEGATIVE (NEG)
[2019-06-09 02:51] LABS: CLARITY,URINE CLEAR (Clear); COLOR,URINE STRAW (Yellow); GLUCOSE, URINE >=1000 mg/dl (Neg); KETONES,URINE NEGATIVE (Neg); LEUKOCYTE ESTERASE ,URINE NEGATIVE (Neg); NITRITES, URINE NEGATIVE (Neg); OCCULT BLOOD,URINE MODERATE (Neg); PROTEIN,URINE 100 mg/dl (Neg); UROBILINOGEN,URINE 0.2 E.U/dL (0.2-1.0)
[2019-06-09] MEDS ORDERED: normal saline 1000ML IV soln IVB ONE (02:55)
[2019-06-09] MEDS ORDERED: pantoprazole 40 MG vial IV ONE (02:55)
[2019-06-09] MEDS ORDERED: dicyclomine 10mg/ml 2ml ampule IM ONE (02:55)
[2019-06-09] MEDS ORDERED: simethicone 125mg capsule PO SCH (02:55)
[2019-06-09] MEDS ORDERED: magnesium citrate 296ml oral solution PO ONE (02:55)
[2019-06-09] MEDS ORDERED: ondansetron/PF 4mg/2ml inj IV ONE (02:55)
[2019-06-09 02:58] LABS: UA COLLECTION TYPE CLN CATCH MIDSTREAM
[2019-06-09 03:01] LABS: BACTERIA,URINE NONE SEEN /HPF (Neg); RBC,URINE 0-2 /HPF (0-2); SQUAMOUS EPITHELIAL CELL,UR FEW /LPF (FEW); WBC,URINE NONE SEEN /HPF (0-4)
[2019-06-09] MEDS ORDERED: polyethylene glycol 3350 17gm powd pack PO ONE (04:23)
[2019-06-09 04:29] VITALS: BP 166/97
== END 2019-06-09 04:31 | disposition home or self-care (01) ==
LOC: ER 01:41
DX: R10.84 Generalized abdominal pain (principal); R10.32 Left lower quadrant pain; R14.0 Abdominal distension (gaseous); K59.00 Constipation, unspecified; I48.91 Unspecified atrial fibrillation; I25.10 Atherosclerotic heart disease of native coronary artery without angina pectoris; I10 Essential (primary) hypertension; I25.2 Old myocardial infarction; J44.9 Chronic obstructive pulmonary disease, unspecified; K21.9 Gastro-esophageal reflux disease without esophagitis; E11.9 Type 2 diabetes mellitus without complications; G89.29 Other chronic pain; F17.200 Nicotine dependence, unspecified, uncomplicated; Z90.49 Acquired absence of other specified parts of digestive tract; Z90.710 Acquired absence of both cervix and uterus; Z95.0 Presence of cardiac pacemaker; Z98.890 Other specified postprocedural states; Z85.41 Personal history of malignant neoplasm of cervix uteri; Z88.0 Allergy status to penicillin; Z88.2 Allergy status to sulfonamides; Z88.5 Allergy status to narcotic agent; Z91.048 Other nonmedicinal substance allergy status; Z88.8 Allergy status to other drugs, medicaments and biological substances
CPT/HCPCS: 36415; 74022; 80053; 81001; 81025; 83690; 85025; 96372; 96374; 96375; 99284; C9113; J0500; J2405; J7030

== ENCOUNTER 2019-07-12 15:57 | Emergency (ER) | payer MEDICARE, MEDICAID ==
[~2019-07-12] VITALS: Ht 175.3 cm; Wt 80.5 kg
[2019-07-12 16:40] LABS: URINE HCG NEGATIVE (NEG)
[2019-07-12 16:42] LABS: CLARITY,URINE CLEAR (Clear); COLOR,URINE YELLOW (Yellow); GLUCOSE, URINE NEGATIVE (Neg); KETONES,URINE NEGATIVE (Neg); LEUKOCYTE ESTERASE ,URINE NEGATIVE (Neg); NITRITES, URINE NEGATIVE (Neg); OCCULT BLOOD,URINE SMALL (Neg); PROTEIN,URINE 100 mg/dl (Neg); UROBILINOGEN,URINE 0.2 E.U/dL (0.2-1.0)
[2019-07-12 16:46] LABS: ALANINE AMINOTRANSFERASE 21 U/L (12-78); ALBUMIN 4.4 G/DL (3.4-5.0); ALBUMIN/GLOBULIN RATIO 1.3 (1.1-1.5); ALKALINE PHOSPHATASE 68 IU/L (46-116); ANION GAP 8 (8-16); ASPARTATE AMINO TRANSFERASE 24 U/L (10-37); BILIRUBIN,TOTAL 0.6 MG/DL (0.1-1.0); BLOOD UREA NITROGEN 12 MG/DL (7-18); BUN/CREATININE RATIO 10.7 (6.6-38.0); CHLORIDE 104 MMOL/L (99-107); CREATININE 1.12 MG/DL (0.40-0.90); GLUCOSE 155 MG/DL (70-104); LIPASE 165 U/L (73-393); POTASSIUM 3.6 MMOL/L (3.5-5.1); SODIUM 142 MMOL/L (135-145); TOTAL CARBON DIOXIDE 30.2 MMOL/L (24-32); TOTAL PROTEIN 7.9 G/DL (6.4-8.2); eGFR 50 ML/MIN
[2019-07-12 16:47] LABS: BACTERIA,URINE NONE SEEN /HPF (Neg); MUCUS STRANDS FEW /LPF (Neg); RBC,URINE 0-2 /HPF (0-2); SQUAMOUS EPITHELIAL CELL,UR FEW /LPF (FEW); UA COLLECTION TYPE CLN CATCH MIDSTREAM; WBC,URINE 0-4 /HPF (0-4)
[2019-07-12 16:48] LABS: HYALINE CASTS 0-3 /LPF (NEGATIVE)
[2019-07-12 16:55] LABS: CALCIUM 9.7 MG/DL (8.5-10.1)
[2019-07-12 17:10] LABS: BASOPHILS # (AUTO) 0.1 X10'3 (0-0.2); BASOPHILS % (AUTO) 1.1 % (0-1); EOSINOPHILS # (AUTO) 0.2 X10'3 (0-0.9); EOSINOPHILS % (AUTO) 1.6 % (0-6); HEMATOCRIT 45.2 % (35.0-45.0); HEMOGLOBIN 16.1 g/dl (12.0-16.0); LYMPHOCYTES # (AUTO) 2.3 X10'3 (1.1-4.8); LYMPHOCYTES % (AUTO) 24.4 % (21-51); MEAN CORPUSCULAR HEMOGLOBIN 33.5 PG (27.0-31.0); MEAN CORPUSCULAR HGB CONC 35.7 g/dL (33.0-36.5); MEAN CORPUSCULAR VOLUME 93.9 FL (78-98); MEAN PLATELET VOLUME 8.6 FL (7.4-10.4); MONOCYTES # (AUTO) 0.6 X10'3 (0-0.9); MONOCYTES % (AUTO) 6.9 % (2-12); NEUTROPHILS # (AUTO) 6.2 X10'3 (1.8-7.7); PLATELET COUNT 252 X10'3 (140-440); RED BLOOD COUNT 4.81 X10'6 (4.20-5.60); RED CELL DISTRIBUTION WIDTH 13.5 % (11.5-14.5); WHITE BLOOD COUNT 9.4 X10'3 (4.5-11.0)
[2019-07-12] MEDS ORDERED: normal saline 1000ML IV soln IVB ONE (17:15)
[2019-07-12] MEDS ORDERED: ondansetron/PF 4mg/2ml inj IV ONE (17:15)
[2019-07-12] MEDS ORDERED: morphine 4 MG/ML inj SYRINge IV ONE (17:25)
[2019-07-12 17:26] LABS: ANISOCYTOSIS FEW; PLATELET ESTIMATE NORMAL
[2019-07-12 17:27] LABS: SPHEROCYTES FEW
[2019-07-12] MEDS ORDERED: ONDA4TAB6 PO (18:26)
[2019-07-12] MEDS ORDERED: HYDR-4383 PO (18:26)
[2019-07-12 19:07] VITALS: BP 116/57
== END 2019-07-12 19:10 | disposition home or self-care (01) ==
LOC: ER 15:57
DX: A08.4 Viral intestinal infection, unspecified (principal); K57.90 Diverticulosis of intestine, part unspecified, without perforation or abscess without bleeding; R19.7 Diarrhea, unspecified; I48.91 Unspecified atrial fibrillation; I25.10 Atherosclerotic heart disease of native coronary artery without angina pectoris; I10 Essential (primary) hypertension; I25.2 Old myocardial infarction; J44.9 Chronic obstructive pulmonary disease, unspecified; K21.9 Gastro-esophageal reflux disease without esophagitis; G89.29 Other chronic pain; E11.9 Type 2 diabetes mellitus without complications; Z90.49 Acquired absence of other specified parts of digestive tract; Z90.710 Acquired absence of both cervix and uterus; Z95.0 Presence of cardiac pacemaker; Z98.890 Other specified postprocedural states; Z88.0 Allergy status to penicillin; Z88.2 Allergy status to sulfonamides; Z88.8 Allergy status to other drugs, medicaments and biological substances; Z88.6 Allergy status to analgesic agent; Z79.899 Other long term (current) drug therapy; Z79.01 Long term (current) use of anticoagulants
CPT/HCPCS: 36415; 74176; 80053; 81001; 81025; 83690; 85025; 93005; 96374; 96375; 99285; J2270; J2405; J7030

== ENCOUNTER 2021-03-29 16:17 | Inpatient (IN) | payer MEDICARE, MEDICAID ==
[~2021-03-29] VITALS: Ht 175.3 cm; Wt 74.4 kg
[~2021-03-29 16:17] MED LIST changes: +CHOL200016 PO; +CHOL378P PO; -CYCL-1 PO; -DOCU250C87 PO; +DRON400T6 PO; -FAMO10TA89 PO; -FENO160T13 PO; +FERR325T33 PO; +GABA-530 PO; -HYDR-4383 PO; +LISI40TA13 PO; -LISI40TA4 PO; +METO100T14 PO; -OMEP-50 PO; +OMEP20CA16 PO; +ONDA-103 PO; -SOTA80TA PO; -WARF-55 PO; -WARF3TAB PO; +WARF4TAB69 PO
[2021-03-29] MEDS ORDERED: aspirin 81mg tab.chew PO ONE (16:30)
[2021-03-29 17:04] LABS: ALANINE AMINOTRANSFERASE 26 U/L (12-78); ALBUMIN 4.3 G/DL (3.4-5.0); ALBUMIN/GLOBULIN RATIO 1.3 (1.1-1.5); ALKALINE PHOSPHATASE 76 IU/L (46-116); ANION GAP 11 (8-16); ASPARTATE AMINO TRANSFERASE 30 U/L (10-37); BILIRUBIN,TOTAL 0.5 MG/DL (0.1-1.0); BLOOD UREA NITROGEN 20 MG/DL (7-18); BUN/CREATININE RATIO 17.9 (6.6-38.0); CALCIUM 9.2 MG/DL (8.5-10.1); CHLORIDE 102 MMOL/L (99-107); CREATININE 1.12 MG/DL (0.40-0.90); GLUCOSE 99 MG/DL (70-104); POTASSIUM 3.8 MMOL/L (3.5-5.1); SODIUM 141 MMOL/L (135-145); TOTAL CARBON DIOXIDE 27.9 MMOL/L (24-32); TOTAL PROTEIN 7.6 G/DL (6.4-8.2); eGFR 49 ML/MIN
[2021-03-29 17:26] LABS: BASOPHILS # (AUTO) 0.1 X10'3 (0-0.2); BASOPHILS % (AUTO) 0.9 % (0-1); EOSINOPHILS # (AUTO) 0.2 X10'3 (0-0.9); HEMATOCRIT 45.4 % (35.0-45.0); HEMOGLOBIN 16.1 g/dl (12.0-16.0); MEAN CORPUSCULAR HGB CONC 35.4 g/dL (33.0-36.5); MEAN CORPUSCULAR VOLUME 93.2 FL (78-98); MEAN PLATELET VOLUME 9.3 FL (7.4-10.4); MONOCYTES # (AUTO) 0.7 X10'3 (0-0.9); NEUTROPHILS # (AUTO) 4.2 X10'3 (1.8-7.7); NEUTROPHILS % (AUTO) 51.1 % (42-75); PLATELET COUNT 246 X10'3 (140-440); RED BLOOD COUNT 4.87 X10'6 (4.20-5.60); RED CELL DISTRIBUTION WIDTH 13.7 % (11.5-14.5); WHITE BLOOD COUNT 8.2 X10'3 (4.5-11.0)
[2021-03-29] MEDS: nitroGLYCERIN 0.4mg SUBLingual tab SL PRN (17:32)
[2021-03-29 17:46] LABS: APTT 37 SECONDS (22-32)
[2021-03-29] MEDS ORDERED: ketorolac trometh. 30mg/ml inj. IV ONE (20:15)
[2021-03-30] VITALS (11 sets, daily range): BP systolic 101–150; BP diastolic 58–81
[2021-03-30] MEDS ORDERED: diphenhydrAMINE 25mg capsule PO PRN (00:05)
[2021-03-30] MEDS ORDERED: ondansetron/PF 4mg/2ml inj IV PRN (00:05)
[2021-03-30] MEDS ORDERED: ondansetron 4mg rapidly disintigrating tab PO PRN (00:05)
[2021-03-30] MEDS ORDERED: morphine 2 MG/ML inj. syringe IV PRN (00:05)
[2021-03-30] MEDS ORDERED: HYDROmorphone inj. 0.5 MG/0.5 ML DISP.SYRIN IV PRN (00:05)
[2021-03-30] MEDS ORDERED: bisacodyl 10mg suppository rectal RC PRN (00:05)
[2021-03-30] MEDS ORDERED: acetaminophen 650mg rectal suppository RC PRN (00:05)
[2021-03-30] MEDS ORDERED: magnesium hydroxide 30ml (MOM) UD suspension PO PRN (00:05)
[2021-03-30] MEDS ORDERED: acetaminophen 325mg tablet PO PRN ×2 (00:05)
[2021-03-30] MEDS ORDERED: mag hydrox/Alum hydrox/simeth 30ml oral suspension PO PRN (00:05)
[2021-03-30] MEDS ORDERED: HYDROcodone/acetaminophen 5mg/325mg tablet PO PRN (00:05)
[2021-03-30] MEDS ORDERED: HYDROcodone/acetaminophen 10/325mg tab PO PRN (00:05)
[2021-03-30 01:09] LABS: APTT 36 SECONDS (22-32)
[2021-03-30 01:11] LABS: D-DIMER < 0.19 MG/L FEU (0-0.50)
[2021-03-30 01:19] LABS: MAGNESIUM 1.9 MG/DL (1.5-2.4); PHOSPHORUS 4.7 MG/DL (2.3-4.5)
[2021-03-30 01:24] LABS: HEMOGLOBIN A1C 6.1 % (4.5-6.2)
[2021-03-30] MEDS: dextrose 5%-1/2 normal saline 1,000 ML IV SCH (02:12)
--- NOTE | 2021-03-30 03:50 | NUR ---
Report received from Carlos regarding the patient, SHILA GOODWIN, 60 y/o, F admitted by VICKY BREWSTER MD, was given written information regarding hospital policies, unit procedures and contact persons. Patient able to move self. No acute distress noted. Needs attended. See Admission information. Addendum: 03/30/21 at 0650 by Temitope Gonzalez RN Vital signs stable Temp: 97.8,. BP: 127/61. HR: 60. RR 18
[2021-03-30] MEDS ORDERED: nitroGLYCERIN 0.2mg/hour patch TD SCH (08:00)
[2021-03-30] MEDS ORDERED: ketorolac tromethamine 15mg/ml inj. IV PRN (09:00)
[2021-03-30] MEDS ORDERED: nitroGLYCERIN 0.4mg SUBLingual tab SL PRN (10:10)
[2021-03-30] MEDS ORDERED: regadenoson 0.4mg/5ml syringe IV PRN (10:10)
[2021-03-30] MEDS ORDERED: aminophylline 250mg/10ml inj. IV PRN (10:10)
[2021-03-30] MEDS ORDERED: metoprolol tartrate 1mg/ml inj IV PRN (10:10)
[2021-03-30] MEDS: nitroGLYCERIN 0.4mg SUBLingual tab SL PRN (10:50)
[2021-03-30] MEDS ORDERED: ketorolac trometh. 30mg/ml inj. IV ONE (12:15)
[2021-03-30] MEDS ORDERED: LIPA1CAP18 PO (15:08)
[2021-03-30] MEDS ORDERED: DULO30CA52 PO (15:09)
[2021-03-30] MEDS ORDERED: WARF6TAB49 PO (15:16)
--- NOTE | 2021-03-30 15:41 | NUR ---
DM Consult: Pt hx DM diet controlled w/ A1C 6.1% this admit per EMR. Current A1C appropriate per ADA guidelines. Will monitor for nutrition intervention needs this admit. Addendum: 03/30/21 at [address] Amended: Links added.
[2021-03-30] MEDS: morphine 2 MG/ML inj. syringe IV PRN (17:00)
--- NOTE | 2021-03-30 19:38 | NUR ---
Patient in room PCU 3025. I have received report from PATO PATRICK and had the opportunity to ask questions and assume patient care.
[2021-03-30] MEDS ORDERED: predniSONE 20 mg tablet PO ONE (20:00)
[2021-03-30] MEDS ORDERED: temazepam 15mg capsule PO PRN (21:00)
[2021-03-31 02:00] VITALS: BP 150/73
[2021-03-31] MEDS: morphine 2 MG/ML inj. syringe IV PRN ×2 (04:25→11:04)
[2021-03-31] MEDS: dextrose 5%-1/2 normal saline 1,000 ML IV SCH (06:05)
[2021-03-31 07:00] VITALS: BP 139/74
[2021-03-31 07:00] LABS: BASOPHILS % (AUTO) 0.3 % (0-1); EOSINOPHILS % (AUTO) 0.1 % (0-6); HEMATOCRIT 41.5 % (35.0-45.0); LYMPHOCYTES # (AUTO) 0.7 X10'3 (1.1-4.8); LYMPHOCYTES % (AUTO) 16.6 % (21-51); MEAN CORPUSCULAR HEMOGLOBIN 33.3 PG (27.0-31.0); MEAN CORPUSCULAR VOLUME 92.5 FL (78-98); MEAN PLATELET VOLUME 8.8 FL (7.4-10.4); MONOCYTES # (AUTO) 0.1 X10'3 (0-0.9); MONOCYTES % (AUTO) 1.4 % (2-12); NEUTROPHILS # (AUTO) 3.6 X10'3 (1.8-7.7); NEUTROPHILS % (AUTO) 81.6 % (42-75); PLATELET COUNT 179 X10'3 (140-440); RED BLOOD COUNT 4.49 X10'6 (4.20-5.60); RED CELL DISTRIBUTION WIDTH 13.7 % (11.5-14.5); WHITE BLOOD COUNT 4.4 X10'3 (4.5-11.0)
[2021-03-31] MEDS ORDERED: predniSONE 20 mg tablet PO ONE (07:00)
[2021-03-31] MEDS ORDERED: diphenhydrAMINE 25mg capsule PO ONE (07:00)
[2021-03-31 07:15] LABS: ALANINE AMINOTRANSFERASE 21 U/L (12-78); ALBUMIN 3.8 G/DL (3.4-5.0); ALBUMIN/GLOBULIN RATIO 1.2 (1.1-1.5); ALKALINE PHOSPHATASE 74 IU/L (46-116); ANION GAP 7 (8-16); ASPARTATE AMINO TRANSFERASE 23 U/L (10-37); BILIRUBIN,TOTAL 0.3 MG/DL (0.1-1.0); BLOOD UREA NITROGEN 19 MG/DL (7-18); BUN/CREATININE RATIO 18.6 (6.6-38.0); CALCIUM 8.9 MG/DL (8.5-10.1); CHLORIDE 105 MMOL/L (99-107); CHOLESTEROL 155 MG/DL (0-200); CREATININE 1.02 MG/DL (0.40-0.90); GLUCOSE 244 MG/DL (70-104); HDL CHOLESTEROL 39 MG/DL (35-60); LDL CHOLESTEROL 82 MG/DL (50-100); POTASSIUM 4.5 MMOL/L (3.5-5.1); SODIUM 140 MMOL/L (135-145); TOTAL CARBON DIOXIDE 28.3 MMOL/L (24-32); TOTAL PROTEIN 6.9 G/DL (6.4-8.2); TRIGLYCERIDES 101 MG/DL (20-135); eGFR 55 ML/MIN
[2021-03-31 07:18] LABS: C-REACTIVE PROTEIN < 0.05 MG/DL (0.0-0.5)
[2021-03-31] MEDS: aspirin 81mg, enteric-coated 1 TAB TABLET.DR PO SCH (07:57)
[2021-03-31] MEDS: docusate sod 100mg capsule PO SCH ×2 (07:57→21:10)
[2021-03-31 08:42] LABS: MEAN CORPUSCULAR HGB CONC 36.1 g/dL (33.0-36.5)
[2021-03-31 09:25] LABS: RHEUM FACTOR QUAL REFLEX TITER NEGATIVE (Neg)
[2021-03-31] MEDS ORDERED: hydrocortisone sod succ/PF 100mg/2ml inj. IV STA (10:27)
[2021-03-31] MEDS ORDERED: NORMAL SALINE IV ONE ×2 (10:45)
[2021-03-31] MEDS ORDERED: HYDROCORTISONE SOD SUCC IV ONE ×2 (10:45)
[2021-03-31 11:00] VITALS: BP 121/58
[2021-03-31] MEDS ORDERED: LIDOcaine 1% (10mg/ml)w/preservative inj. 20ml MDV ONE (11:04)
[2021-03-31] MEDS ORDERED: fentaNYL/PF 50MCG/1 ML 2ML syringe ONE ×2 (11:04→11:45)
[2021-03-31] MEDS ORDERED: midazolam 1 mg/ML 2ml injection ONE ×2 (11:04→11:45)
[2021-03-31] MEDS ORDERED: iohexol 350MG/ML 100ml bottle IV ONE (11:04)
[2021-03-31] MEDS ORDERED: iohexol 350 MG/ML 50ML vial IV ONE (11:04)
[2021-03-31] MEDS ORDERED: hydrocortisone sod succ/PF 100mg/2ml inj. ONE (11:31)
[2021-03-31] MEDS ORDERED: proCHLORperazine 10 MG/2 ml inj IV PRN (12:35)
[2021-03-31] MEDS ORDERED: normal saline 1000ml 1,000 ML IV ONE (12:35)
[2021-03-31] MEDS ORDERED: normal saline 1000ml 1,000 ML IV SCH (12:35)
[2021-03-31] MEDS ORDERED: nitroGLYCERIN 0.4mg SUBLingual tab SL PRN (12:35)
[2021-03-31] MEDS ORDERED: OXAZEpam 15mg capsule PO PRN (12:35)
[2021-03-31] MEDS ORDERED: ondansetron/PF 4mg/2ml inj IV PRN (12:35)
[2021-03-31] MEDS ORDERED: HYDROcodone/acetaminophen 5mg/325mg tablet PO PRN (12:35)
[2021-03-31 13:28] VITALS: BP 131/62
[2021-03-31 15:00] VITALS: BP 149/72
[2021-03-31] MEDS ORDERED: non-formulary drug (Ondansetron HCl 1 TAB) PO PRN (16:50)
[2021-03-31] MEDS ORDERED: ondansetron 4mg rapidly disintigrating tab PO PRN (17:10)
[2021-03-31] MEDS ORDERED: metoprolol tartrate 50mg tablet PO SCH (17:30)
[2021-03-31] MEDS ORDERED: non-formulary drug (Metoprolol Tartrate 1 TAB) PO SCH (17:30)
[2021-03-31] MEDS ORDERED: dronedarone hcl 400mg tablet PO SCH (17:30)
[2021-03-31 18:00] VITALS: BP 153/62
[2021-03-31] MEDS ORDERED: [UNRECOGNIZED DRUG - OTHER] PO SCH (18:00)
[2021-03-31] MEDS ORDERED: AMYLASE PO SCH (18:00)
[2021-03-31] MEDS ORDERED: CHOLESTYRAMINE 4 GM PO SCH (18:00)
[2021-03-31] MEDS ORDERED: PROTEASE PO SCH (18:00)
[2021-03-31] MEDS ORDERED: LIPASE PO SCH (18:00)
[2021-03-31] MEDS ORDERED: LIPASE/PROTEASE/AMYLASE 16,800 UNIT CAPSULE.DR PO SCH (18:00)
[2021-03-31] MEDS ORDERED: chloestyramine/aspartame 4gm packet PO SCH (18:00)
[2021-03-31] MEDS: ferrous sulfate 325mg tablet PO SCH (21:10)
[2021-03-31] MEDS: diphenhydrAMINE 50 mg/ml inj IV PRN (22:25)
[2021-03-31] MEDS: HYDROcodone/acetaminophen 10/325mg tab PO PRN (22:26)
[2021-04-01] MEDS: HYDROcodone/acetaminophen 10/325mg tab PO PRN (04:07)
[2021-04-01 06:52] LABS: ALANINE AMINOTRANSFERASE 18 U/L (12-78); ALBUMIN 3.3 G/DL (3.4-5.0); ALBUMIN/GLOBULIN RATIO 1.4 (1.1-1.5); ALKALINE PHOSPHATASE 65 IU/L (46-116); ANION GAP 9 (8-16); ASPARTATE AMINO TRANSFERASE 18 U/L (10-37); BILIRUBIN,TOTAL 0.2 MG/DL (0.1-1.0); BLOOD UREA NITROGEN 14 MG/DL (7-18); BUN/CREATININE RATIO 16.7 (6.6-38.0); CALCIUM 8.3 MG/DL (8.5-10.1); CHLORIDE 110 MMOL/L (99-107); CREATININE 0.84 MG/DL (0.40-0.90); GLUCOSE 139 MG/DL (70-104); POTASSIUM 3.8 MMOL/L (3.5-5.1); SODIUM 145 MMOL/L (135-145); TOTAL CARBON DIOXIDE 26.3 MMOL/L (24-32); TOTAL PROTEIN 5.6 G/DL (6.4-8.2); eGFR 69 ML/MIN
[2021-04-01 07:05] LABS: BASOPHILS % (AUTO) 0.3 % (0-1); EOSINOPHILS % (AUTO) 0.3 % (0-6); HEMATOCRIT 37.6 % (35.0-45.0); HEMOGLOBIN 13.5 g/dl (12.0-16.0); LYMPHOCYTES # (AUTO) 1.8 X10'3 (1.1-4.8); LYMPHOCYTES % (AUTO) 17.5 % (21-51); MEAN CORPUSCULAR HEMOGLOBIN 33.9 PG (27.0-31.0); MEAN CORPUSCULAR HGB CONC 35.9 g/dL (33.0-36.5); MEAN CORPUSCULAR VOLUME 94.2 FL (78-98); MEAN PLATELET VOLUME 9.2 FL (7.4-10.4); MONOCYTES # (AUTO) 0.8 X10'3 (0-0.9); MONOCYTES % (AUTO) 8.1 % (2-12); NEUTROPHILS # (AUTO) 7.5 X10'3 (1.8-7.7); NEUTROPHILS % (AUTO) 73.8 % (42-75); PLATELET COUNT 165 X10'3 (140-440); RED BLOOD COUNT 3.99 X10'6 (4.20-5.60); RED CELL DISTRIBUTION WIDTH 13.4 % (11.5-14.5); WHITE BLOOD COUNT 10.2 X10'3 (4.5-11.0)
[2021-04-01] MEDS ORDERED: pantoprazole 40mg Tablet.DR PO SCH (07:30)
[2021-04-01 07:56] LABS: PLATELET ESTIMATE NORMAL; SPHEROCYTES FEW; TEAR DROP CELLS FEW
[2021-04-01] MEDS ORDERED: amLODIPine 5mg tablet PO SCH (08:00)
[2021-04-01] MEDS ORDERED: WARFARIN SODIUM 7 MG PO SCH (08:00)
[2021-04-01] MEDS ORDERED: lisinopril 20mg tablet PO SCH (08:00)
[2021-04-01] MEDS ORDERED: non-formulary drug (Lisinopril* 40 MG) PO SCH (08:00)
[2021-04-01] MEDS: nicotine 21mg patch - 24 hr TD SCH ×2 (08:00→09:27)
[2021-04-01] MEDS ORDERED: atorvastatin 10mg tablet PO SCH (08:00)
[2021-04-01] MEDS ORDERED: duloxetine 30mg CAPSULE.DR PO SCH (08:00)
[2021-04-01] MEDS ORDERED: HYDROchlorothiazide 12.5mg capsule PO SCH (08:00)
[2021-04-01] MEDS ORDERED: non-formulary drug (Hydrochlorothiazide 1 TAB) PO SCH (08:00)
[2021-04-01] MEDS ORDERED: warfarin 4mg tablet PO SCH ×2 (08:00)
[2021-04-01] MEDS ORDERED: warfarin 3mg tablet PO SCH (08:00)
[2021-04-01] MEDS ORDERED: non-formulary drug (Amlodipine Besylate 10 MG) PO SCH (08:00)
[2021-04-01] MEDS: docusate sod 100mg capsule PO SCH (09:27)
[2021-04-01 09:30] VITALS: BP_SYST 128
[2021-04-01] MEDS: ferrous sulfate 325mg tablet PO SCH (09:31)
[2021-04-01] MEDS: aspirin 81mg, enteric-coated 1 TAB TABLET.DR PO SCH (09:31)
[2021-04-01] MEDS: diphenhydrAMINE 50 mg/ml inj IV PRN (09:33)
[2021-04-01] MEDS ORDERED: dexamethasone sod phosphate 10mg/ml inj IV STA (11:19)
[2021-04-01] MEDS ORDERED: dexamethasone inj 10 MG in dextrose 5%-water 100 ML IV ONE (12:15)
[2021-04-01] MEDS ORDERED: NICO-687 TD (13:23)
[2021-04-01] MEDS ORDERED: DIPH-423 PO (13:23)
[2021-04-01] MEDS ORDERED: DEXA4TAB67 PO (13:23)
[2021-04-01] MEDS ORDERED: diphenhydrAMINE 25mg capsule PO SCH (14:00)
[2021-04-02] MEDS ORDERED: warfarin 4mg tablet PO SCH (21:00)
[2021-04-08] MEDS ORDERED: warfarin 4mg tablet PO SCH (21:00)
[2021-04-08] MEDS ORDERED: warfarin 3mg tablet PO SCH (21:00)
== END 2021-04-01 16:29 | disposition home or self-care (01) | DRG 286 ==
LOC: ER 16:18 → ED HOLD 03-30 00:08 → PCU 3S 03-30 03:45
PROVIDERS: ADMIT Family Medicine; ATTEND Family Medicine
PROC: 4A02XM4 Measurement of Cardiac Total Activity, External Approach (ICD-10-PCS; 2021-03-30)
PROC: 3E033HZ Introduction of Radioactive Substance into Peripheral Vein, Percutaneous Approach (ICD-10-PCS; 2021-03-30)
PROC: 4A023N7 Measurement of Cardiac Sampling and Pressure, Left Heart, Percutaneous Approach (ICD-10-PCS; principal; 2021-03-31)
PROC: B2111ZZ Fluoroscopy of Multiple Coronary Arteries using Low Osmolar Contrast (ICD-10-PCS; 2021-03-31)
PROC: B2151ZZ Fluoroscopy of Left Heart using Low Osmolar Contrast (ICD-10-PCS; 2021-03-31)
DX: R07.89 Other chest pain (principal); N17.0 Acute kidney failure with tubular necrosis; I13.0 Hypertensive heart and chronic kidney disease with heart failure and stage 1 through stage 4 chronic kidney disease, or unspecified chronic kidney disease; K86.1 Other chronic pancreatitis; I25.119 Atherosclerotic heart disease of native coronary artery with unspecified angina pectoris; I48.0 Paroxysmal atrial fibrillation; D64.9 Anemia, unspecified; E78.5 Hyperlipidemia, unspecified; F12.90 Cannabis use, unspecified, uncomplicated; F17.210 Nicotine dependence, cigarettes, uncomplicated; G89.4 Chronic pain syndrome; I49.3 Ventricular premature depolarization; E11.22 Type 2 diabetes mellitus with diabetic chronic kidney disease; K57.90 Diverticulosis of intestine, part unspecified, without perforation or abscess without bleeding; I50.9 Heart failure, unspecified; J44.9 Chronic obstructive pulmonary disease, unspecified; K21.9 Gastro-esophageal reflux disease without esophagitis; N18.9 Chronic kidney disease, unspecified; M25.50 Pain in unspecified joint; Z79.01 Long term (current) use of anticoagulants; Z79.891 Long term (current) use of opiate analgesic; I25.2 Old myocardial infarction; Z85.41 Personal history of malignant neoplasm of cervix uteri; Z88.5 Allergy status to narcotic agent; Z90.49 Acquired absence of other specified parts of digestive tract; Z90.710 Acquired absence of both cervix and uterus; Z95.0 Presence of cardiac pacemaker; Z88.0 Allergy status to penicillin; Z88.2 Allergy status to sulfonamides; Z98.51 Tubal ligation status; Z83.3 Family history of diabetes mellitus; Z80.8 Family history of malignant neoplasm of other organs or systems; Z88.8 Allergy status to other drugs, medicaments and biological substances; Z79.899 Other long term (current) drug therapy; Z71.6 Tobacco abuse counseling
CPT/HCPCS: 36415; 71045; 78452; 80053; 80061; 83036; 83735; 83880; 84100; 84484; 85008; 85025; 85379; 85610; 85651; 85730; 86038; 86140; 86430; 87081; 93005; 93017; 93458; 99152; 99153; 99285; A4620; A6258; A9500; C1760; C1769; G0378; J1100; J1200; J1644; J1720; J1885; J2250; J2270; J3010; J3490; J7042; J7050; J7060; J7512; Q0163; Q9967

== ENCOUNTER 2022-01-09 18:36 | Emergency (ER) | payer MEDICARE, MEDICAID ==
[~2022-01-09] VITALS: Ht 175.3 cm; Wt 74.0 kg
[~2022-01-09 18:36] MED LIST changes: -CHOL200016 PO; +CHOL200042 PO; -CHOL378P PO; +DULO30CA52 PO; -GABA-530 PO; -HYDR-3972 PO; +LIPA1CAP18 PO; +WARF1TAB83 PO; -WARF4TAB69 PO
[2022-01-09 19:12] VITALS: BP 154/77
[2022-01-09] MEDS ORDERED: HYDR-3965 PO (21:45)
[2022-01-09] MEDS ORDERED: HYDROcodone/acetaminophen 5mg/325mg tablet PO ONE (21:50)
== END 2022-01-09 22:01 | disposition home or self-care (01) ==
LOC: ER 18:37
DX: M54.41 Lumbago with sciatica, right side (principal); R10.31 Right lower quadrant pain; I10 Essential (primary) hypertension; J44.9 Chronic obstructive pulmonary disease, unspecified; K21.9 Gastro-esophageal reflux disease without esophagitis; E11.9 Type 2 diabetes mellitus without complications; G89.29 Other chronic pain; F12.90 Cannabis use, unspecified, uncomplicated; Z88.0 Allergy status to penicillin; Z88.2 Allergy status to sulfonamides; Z88.8 Allergy status to other drugs, medicaments and biological substances; Z98.890 Other specified postprocedural states; Z90.710 Acquired absence of both cervix and uterus; Z98.51 Tubal ligation status
CPT/HCPCS: 93005; 99283

== ENCOUNTER 2022-02-05 18:49 | Emergency (ER) | payer MEDICARE, MEDICAID ==
[~2022-02-05] VITALS: Ht 175.3 cm; Wt 73.6 kg
[~2022-02-05 18:49] MED LIST changes: +HYDR-3965 PO
[2022-02-05 19:26] LABS: BASOPHILS # (AUTO) 0.1 X10'3 (0-0.2); BASOPHILS % (AUTO) 0.9 % (0-1); EOSINOPHILS # (AUTO) 0.1 X10'3 (0-0.9); EOSINOPHILS % (AUTO) 1.7 % (0-6); HEMOGLOBIN 15.5 g/dl (12.0-16.0); LYMPHOCYTES # (AUTO) 2.9 X10'3 (1.1-4.8); LYMPHOCYTES % (AUTO) 36.2 % (21-51); MEAN CORPUSCULAR HEMOGLOBIN 32.9 PG (27.0-31.0); MEAN CORPUSCULAR HGB CONC 35.2 g/dL (33.0-36.5); MEAN CORPUSCULAR VOLUME 93.4 FL (78-98); MEAN PLATELET VOLUME 8.5 FL (7.4-10.4); MONOCYTES # (AUTO) 0.8 X10'3 (0-0.9); MONOCYTES % (AUTO) 10.6 % (2-12); NEUTROPHILS % (AUTO) 50.6 % (42-75); PLATELET COUNT 199 X10'3 (140-440); RED BLOOD COUNT 4.71 X10'6 (4.20-5.60); RED CELL DISTRIBUTION WIDTH 13.3 % (11.5-14.5)
[2022-02-05 19:27] LABS: URINE HCG NEGATIVE (NEG)
[2022-02-05 19:35] LABS: CLARITY,URINE CLEAR (Clear); COLOR,URINE STRAW (Yellow); GLUCOSE, URINE NEGATIVE (Neg); KETONES,URINE NEGATIVE (Neg); LEUKOCYTE ESTERASE ,URINE NEGATIVE (Neg); NITRITES, URINE NEGATIVE (Neg); OCCULT BLOOD,URINE TRACE-INTACT (Neg); PROTEIN,URINE NEGATIVE (Neg); UROBILINOGEN,URINE 0.2 E.U/dL (0.2-1.0)
[2022-02-05 19:37] LABS: UA COLLECTION TYPE CLN CATCH MIDSTREAM
[2022-02-05 19:40] LABS: SQUAMOUS EPITHELIAL CELL,UR FEW /LPF (FEW)
[2022-02-05 19:41] LABS: BACTERIA,URINE NONE SEEN /HPF (Neg); WBC,URINE 0-4 /HPF (0-4)
[2022-02-05 19:53] LABS: ALANINE AMINOTRANSFERASE 21 U/L (12-78); ALBUMIN 3.8 G/DL (3.4-5.0); ALKALINE PHOSPHATASE 80 IU/L (46-116); ANION GAP 5 (8-16); ASPARTATE AMINO TRANSFERASE 26 U/L (10-37); BILIRUBIN,TOTAL 0.3 MG/DL (0.1-1.0); BLOOD UREA NITROGEN 15 MG/DL (7-18); BUN/CREATININE RATIO 14.2 (6.6-38.0); CALCIUM 9.1 MG/DL (8.5-10.1); CHLORIDE 101 MMOL/L (99-107); CREATININE 1.06 MG/DL (0.40-0.90); GLUCOSE 121 MG/DL (70-104); LIPASE 147 U/L (73-393); POTASSIUM 3.7 MMOL/L (3.5-5.1); SODIUM 139 MMOL/L (135-145); TOTAL CARBON DIOXIDE 32.8 MMOL/L (24-32); TOTAL PROTEIN 7.5 G/DL (6.4-8.2); eGFR 53 ML/MIN
[2022-02-05] MEDS ORDERED: acetaminophen 325mg tablet PO ONE (22:20)
[2022-02-05] MEDS ORDERED: ondansetron 4mg rapidly disintigrating tab PO ONE (22:20)
[2022-02-05] MEDS ORDERED: oxyCODONE SR 10mg (sust. release) tab PO ONE (22:20)
[2022-02-05] MEDS ORDERED: HYDR-3965 PO (23:07)
[2022-02-05 23:26] VITALS: BP 162/93
== END 2022-02-05 23:29 | disposition home or self-care (01) ==
LOC: ER 18:50
DX: K57.92 Diverticulitis of intestine, part unspecified, without perforation or abscess without bleeding (principal); I10 Essential (primary) hypertension; J44.9 Chronic obstructive pulmonary disease, unspecified; K21.9 Gastro-esophageal reflux disease without esophagitis; E11.9 Type 2 diabetes mellitus without complications; G89.29 Other chronic pain; F12.90 Cannabis use, unspecified, uncomplicated; Z88.0 Allergy status to penicillin; Z88.2 Allergy status to sulfonamides; Z88.8 Allergy status to other drugs, medicaments and biological substances; Z98.890 Other specified postprocedural states; Z90.710 Acquired absence of both cervix and uterus; Z98.51 Tubal ligation status
CPT/HCPCS: 36415; 74176; 80053; 81001; 81025; 83690; 85025; 99284

== ENCOUNTER 2022-05-03 17:58 | Emergency (ER) | payer MEDICARE, MEDICAID ==
[~2022-05-03] VITALS: Ht 175.3 cm; Wt 74.1 kg
[~2022-05-03 17:58] MED LIST changes: -HYDR-3965 PO
[2022-05-03 20:27] VITALS: BP 160/97
[2022-05-03] MEDS ORDERED: HYDR-3965 PO (22:13)
== END 2022-05-03 22:26 | disposition home or self-care (01) ==
LOC: ER 17:59
DX: S76.011A Strain of muscle, fascia and tendon of right hip, initial encounter (principal); M25.551 Pain in right hip; Z88.0 Allergy status to penicillin; Z88.2 Allergy status to sulfonamides; Z88.8 Allergy status to other drugs, medicaments and biological substances; Z88.1 Allergy status to other antibiotic agents; Z91.041 Radiographic dye allergy status; W10.8XXA Fall (on) (from) other stairs and steps, initial encounter; Y93.89 Activity, other specified; Y92.89 Other specified places as the place of occurrence of the external cause; Y99.8 Other external cause status
CPT/HCPCS: 73502; 99284

== ENCOUNTER 2022-08-30 22:10 | Inpatient (IN) | payer MEDICARE, MEDICAID ==
[~2022-08-30] VITALS: Ht 175.3 cm; Wt 73.6 kg
[~2022-08-30 22:10] MED LIST changes: +AMOX-580 PO; +HYDR-3973 PO; -HYDR12.55 PO; +LEVO750T68 PO; +METR-159 PO; +ONDA4TAB12 PO; +POTA-207 PO; +WARF-55 PO
[2022-08-30] MEDS ORDERED: normal saline 1000ML IV soln IVB ONE (23:05)
[2022-08-30] MEDS ORDERED: ondansetron/PF 4mg/2ml inj IV ONE (23:40)
[2022-08-30] MEDS ORDERED: morphine 4 MG/ML inj SYRINge IV ONE (23:40)
[2022-08-30 23:44] LABS: BASOPHILS # (AUTO) 0.1 X10'3 (0-0.2); BASOPHILS % (AUTO) 0.7 % (0-1); EOSINOPHILS # (AUTO) 0.2 X10'3 (0-0.9); EOSINOPHILS % (AUTO) 1.6 % (0-6); HEMATOCRIT 39.4 % (35.0-45.0); HEMOGLOBIN 13.5 g/dl (12.0-16.0); LYMPHOCYTES # (AUTO) 2.1 X10'3 (1.1-4.8); LYMPHOCYTES % (AUTO) 17.3 % (21-51); MEAN CORPUSCULAR HEMOGLOBIN 31.9 PG (27.0-31.0); MEAN CORPUSCULAR HGB CONC 34.3 g/dL (33.0-36.5); MEAN PLATELET VOLUME 8.1 FL (7.4-10.4); MONOCYTES # (AUTO) 1.1 X10'3 (0-0.9); MONOCYTES % (AUTO) 9.1 % (2-12); NEUTROPHILS # (AUTO) 8.7 X10'3 (1.8-7.7); NEUTROPHILS % (AUTO) 71.3 % (42-75); PLATELET COUNT 219 X10'3 (140-440); RED BLOOD COUNT 4.24 X10'6 (4.20-5.60); RED CELL DISTRIBUTION WIDTH 13.3 % (11.5-14.5); WHITE BLOOD COUNT 12.1 X10'3 (4.5-11.0)
[2022-08-30 23:57] LABS: ALANINE AMINOTRANSFERASE 14 U/L (12-78); ALBUMIN 3.4 G/DL (3.4-5.0); ALBUMIN/GLOBULIN RATIO 1.2 (1.1-1.5); ALKALINE PHOSPHATASE 72 IU/L (46-116); ANION GAP 9 (8-16); ASPARTATE AMINO TRANSFERASE 18 U/L (10-37); BILIRUBIN,TOTAL 0.4 MG/DL (0.1-1.0); BLOOD UREA NITROGEN 5 MG/DL (7-18); BUN/CREATININE RATIO 4.9 (10.0-20.0); CALCIUM 8.6 MG/DL (8.5-10.1); CHLORIDE 106 MMOL/L (99-107); CREATININE 1.03 MG/DL (0.40-0.90); GLUCOSE 88 MG/DL (70-104); POTASSIUM 3.8 MMOL/L (3.5-5.1); SODIUM 143 MMOL/L (135-145); TOTAL CARBON DIOXIDE 28.5 MMOL/L (24-32); TOTAL PROTEIN 6.3 G/DL (6.4-8.2); eGFR 54 ML/MIN
--- NOTE | 2022-08-31 00:10 | NUR ---
warm packs to abd and covered her in warmed blankets.
[2022-08-31] MEDS ORDERED: piperacillin/tazo 3.375gm/50ml 50 ML IV ONE (00:20)
[2022-08-31] MEDS: pantoprazole 40MG/NS 100ML BAG 100 ML IV SCH ×5 (01:00→19:37)
[2022-08-31] MEDS ORDERED: ondansetron 4mg rapidly disintigrating tab PO PRN (01:30)
[2022-08-31] MEDS ORDERED: diphenhydrAMINE 50 mg/ml inj IV PRN (01:30)
[2022-08-31] MEDS ORDERED: bisacodyl 10mg suppository rectal RC PRN (01:30)
[2022-08-31] MEDS ORDERED: HYDROcodone/acetaminophen 5mg/325mg tablet PO PRN (01:30)
[2022-08-31] MEDS ORDERED: acetaminophen 650mg rectal suppository RC PRN (01:30)
[2022-08-31] MEDS ORDERED: diphenhydrAMINE 25mg capsule PO PRN (01:30)
[2022-08-31] MEDS ORDERED: magnesium hydroxide 30ml (MOM) UD suspension PO PRN (01:30)
[2022-08-31] MEDS ORDERED: acetaminophen 325mg tablet PO PRN ×2 (01:30)
[2022-08-31] MEDS ORDERED: mag hydrox/Alum hydrox/simeth 30ml oral suspension PO PRN (01:30)
[2022-08-31] MEDS ORDERED: HYDROcodone/acetaminophen 10/325mg tab PO PRN (01:30)
[2022-08-31] MEDS ORDERED: tranexamic acid inj. 1,000 MG in normal saline 100ml IV soln 90 ML IV ONE (01:35)
[2022-08-31] MEDS ORDERED: phytonadione inj. 5 MG in normal saline 100ml IV soln 100 ML IV ONE (01:35)
[2022-08-31] MEDS: normal saline 1000ml 1,000 ML IV SCH ×3 (02:09→20:58)
[2022-08-31 02:29] LABS: CLARITY,URINE CLEAR (Clear); COLOR,URINE YELLOW (Yellow); GLUCOSE, URINE NEGATIVE (Neg); KETONES,URINE NEGATIVE (Neg); LEUKOCYTE ESTERASE ,URINE NEGATIVE (Neg); NITRITES, URINE NEGATIVE (Neg); OCCULT BLOOD,URINE TRACE-INTACT (Neg); PROTEIN,URINE NEGATIVE (Neg); UROBILINOGEN,URINE 0.2 E.U/dL (0.2-1.0)
[2022-08-31 02:34] LABS: UA COLLECTION TYPE OTHER
[2022-08-31 02:43] LABS: BACTERIA,URINE 1+ /HPF (Neg); RBC,URINE 0-2 /HPF (0-2); SQUAMOUS EPITHELIAL CELL,UR MANY /LPF (FEW); TRANSITIONAL EPI CELLS,URINE FEW /HPF; WBC,URINE 0-4 /HPF (0-4)
[2022-08-31 02:47] LABS: HEMOGLOBIN A1C 5.1 % (4.5-6.2)
[2022-08-31 02:49] LABS: CREATINE KINASE 84 U/L (26-192); MAGNESIUM 1.6 MG/DL (1.5-2.4); PHOSPHORUS 3.6 MG/DL (2.3-4.5)
[2022-08-31 02:53] LABS: APTT 40 SECONDS (22-32)
[2022-08-31 04:09] LABS: URINE AMPHETAMINE SCREEN NEGATIVE (Neg); URINE BARBITUATE SCREEN NEGATIVE (Neg); URINE BENZODIAZEPINES SCREEN NEGATIVE (Neg); URINE CANNABINOID SCREEN POSITIVE (Neg); URINE COCAINE SCREEN NEGATIVE (Neg); URINE METHADONE SCREEN NEGATIVE (Neg); URINE OPIATE SCREEN POSITIVE (Neg); URINE PHENCYCLIDINE SCREEN NEGATIVE (Neg)
[2022-08-31] MEDS: ondansetron/PF 4mg/2ml inj IV PRN ×3 (04:23→22:51)
[2022-08-31] MEDS: morphine 2 MG/ML inj. syringe IV PRN ×5 (04:50→22:51)
[2022-08-31 04:55] VITALS: BP 157/60; PULSE 61; RESP 15; TEMP 97.3; O2SAT 95
--- NOTE | 2022-08-31 06:26 | NUR ---
Problems reprioritized. Patient report given, questions answered & plan of care reviewed with Mary RN.
--- NOTE | 2022-08-31 06:30 | NUR ---
Patient in room PCU 3028. I have received report from Mandi RN & Caron RN and had the opportunity to ask questions and assume patient care.
[2022-08-31] MEDS ORDERED: docusate sod 100mg capsule PO SCH (08:00)
[2022-08-31] MEDS ORDERED: docusate sod 100mg capsule PO PRN (08:30)
[2022-08-31 09:15] VITALS: RESP 16; RESP 66; O2SAT 96
[2022-08-31] MEDS: nicotine 21mg patch - 24 hr TD SCH (09:20)
[2022-08-31] MEDS: piperacillin/tazo 3.375gm/50ml 50 ML IV SCH ×2 (09:21→16:35)
[2022-08-31 11:00] VITALS: BP 126/60; PULSE 68; RESP 18; TEMP 98; O2SAT 95
[2022-08-31] MEDS: HYDROcodone/acetaminophen 10/325mg tab PO PRN ×3 (11:23→21:00)
[2022-08-31 15:00] VITALS: BP 166/65; PULSE 60; RESP 20; TEMP 97.8; O2SAT 100
[2022-08-31] MEDS: metoclopramide 5 mg/ml inj IV PRN (17:57)
[2022-08-31 18:00] VITALS: BP 124/46; PULSE 63; RESP 17; TEMP 97.7; O2SAT 95
--- NOTE | 2022-08-31 18:36 | NUR ---
Patient in room PCU 3028. I have received report from Mary WHYTE and had the opportunity to ask questions and assume patient care.
[2022-08-31] MEDS ORDERED: temazepam 15mg capsule PO PRN (21:00)
[2022-08-31 22:00] VITALS: BP 139/67; PULSE 66; RESP 15; TEMP 97.2; O2SAT 96
[2022-09-01] VITALS (7 sets, daily range): BP systolic 135–185; BP diastolic 52–78; PULSE 60–74; RESP 15–20; TEMP 97.6–98.1; O2SAT 94–98
[2022-09-01] MEDS: HYDROcodone/acetaminophen 10/325mg tab PO PRN ×5 (02:44→23:48)
[2022-09-01] MEDS: metoclopramide 5 mg/ml inj IV PRN ×4 (02:44→21:47)
--- NOTE | 2022-09-01 03:00 | NUR ---
pt ambulated to bathroom, returned to be with nausea and pain. will continue to monitor Addendum: 09/01/22 at 0324 by Mandi Mello RN Amended: Links added.
[2022-09-01 04:57] LABS: BASOPHILS % (AUTO) 0.9 % (0-1); EOSINOPHILS # (AUTO) 0.2 X10'3 (0-0.9); EOSINOPHILS % (AUTO) 3.7 % (0-6); HEMATOCRIT 32.7 % (35.0-45.0); HEMOGLOBIN 11.5 g/dl (12.0-16.0); LYMPHOCYTES # (AUTO) 1.4 X10'3 (1.1-4.8); LYMPHOCYTES % (AUTO) 31.5 % (21-51); MEAN CORPUSCULAR HEMOGLOBIN 32.3 PG (27.0-31.0); MEAN CORPUSCULAR HGB CONC 35.1 g/dL (33.0-36.5); MEAN CORPUSCULAR VOLUME 91.9 FL (78-98); MEAN PLATELET VOLUME 8.3 FL (7.4-10.4); MONOCYTES # (AUTO) 0.4 X10'3 (0-0.9); MONOCYTES % (AUTO) 8.6 % (2-12); NEUTROPHILS # (AUTO) 2.5 X10'3 (1.8-7.7); NEUTROPHILS % (AUTO) 55.3 % (42-75); PLATELET COUNT 154 X10'3 (140-440); RED BLOOD COUNT 3.56 X10'6 (4.20-5.60); RED CELL DISTRIBUTION WIDTH 12.7 % (11.5-14.5); WHITE BLOOD COUNT 4.6 X10'3 (4.5-11.0)
[2022-09-01 05:10] LABS: ALANINE AMINOTRANSFERASE 10 U/L (12-78); ALBUMIN 2.8 G/DL (3.4-5.0); ALBUMIN/GLOBULIN RATIO 1.1 (1.1-1.5); ALKALINE PHOSPHATASE 55 IU/L (46-116); ANION GAP 10 (8-16); ASPARTATE AMINO TRANSFERASE 16 U/L (10-37); BILIRUBIN,TOTAL 0.4 MG/DL (0.1-1.0); BLOOD UREA NITROGEN 4 MG/DL (7-18); BUN/CREATININE RATIO 4.3 (10.0-20.0); CALCIUM 7.8 MG/DL (8.5-10.1); CHLORIDE 109 MMOL/L (99-107); CHOL/HDL RATIO 2.9 (0.00-4.99); CHOLESTEROL 80 MG/DL (0-200); CREATININE 0.93 MG/DL (0.40-0.90); GLUCOSE 113 MG/DL (70-104); HDL CHOLESTEROL 28 MG/DL (35-60); LDL CHOLESTEROL 37 MG/DL (50-100); SODIUM 145 MMOL/L (135-145); TOTAL CARBON DIOXIDE 25.9 MMOL/L (24-32); TOTAL PROTEIN 5.3 G/DL (6.4-8.2); TRIGLYCERIDES 90 MG/DL (20-135); eGFR 61 ML/MIN
[2022-09-01 05:18] LABS: POTASSIUM 2.8 MMOL/L (3.5-5.1)
[2022-09-01] MEDS: pantoprazole 40MG/NS 100ML BAG 100 ML IV SCH ×5 (05:25→21:40)
[2022-09-01] MEDS ORDERED: magnesium 2GM in 50ml NS 50 ML IV PRN (05:35)
[2022-09-01] MEDS ORDERED: magnesium 4gm in 100ml NS 100 ML IV PRN (05:35)
[2022-09-01] MEDS ORDERED: potassium Cl 40MEQ/1/2NS 520ml 520 ML IV PRN (05:35)
--- NOTE | 2022-09-01 06:30 | NUR ---
Patient in room PCU 3028. I have received report from Caron RN & Mandi RN and had the opportunity to ask questions and assume patient care.
--- NOTE | 2022-09-01 06:30 | NUR ---
Problems reprioritized. Patient report given, questions answered & plan of care reviewed with Mary RN.
[2022-09-01 07:04] LABS: MAGNESIUM 1.5 MG/DL (1.5-2.4)
[2022-09-01] MEDS: normal saline 1000ml 1,000 ML IV SCH ×3 (07:30→20:26)
[2022-09-01] MEDS: morphine 2 MG/ML inj. syringe IV PRN ×4 (07:35→20:26)
[2022-09-01] MEDS: ondansetron/PF 4mg/2ml inj IV PRN ×2 (07:36→13:56)
[2022-09-01] MEDS: K and/or MAG REPLACEMENT MC SCH ×2 (08:11→20:00)
[2022-09-01] MEDS: piperacillin/tazo 3.375gm/50ml 50 ML IV SCH ×4 (10:08→23:46)
[2022-09-01] MEDS: potassium Cl 20 mEq SR tablet PO PRN ×3 (10:08→17:49)
[2022-09-01] MEDS: nicotine 21mg patch - 24 hr TD SCH (10:09)
--- NOTE | 2022-09-01 18:39 | NUR ---
Patient in room PCU 3028. I have received report from Mary WHYTE, and had the opportunity to ask questions and assume patient care.
--- NOTE | 2022-09-01 20:40 | NUR ---
Pt c/o pain and nausea, nurse gave PRN morphine and zofran. will continue to monitor pt.
--- NOTE | 2022-09-01 23:13 | NUR ---
Spoke with Dr. Albert regarding BP of 185/78 in left arm and 176/89 in the right arm, informed Dr. Albert pt takes metoprolol 100mg PO BID for HTN. Med rec. has been reviewed and provider stated he would look at the medication reconciliation. No new orders at this time.
[2022-09-02] VITALS (11 sets, daily range): BP systolic 139–190; BP diastolic 66–94; PULSE 60–81; RESP 12–23; TEMP 97.7–98.7; O2SAT 93–97
--- NOTE | 2022-09-02 01:46 | NUR ---
pt BP is 197/92, called and spoke with Dr. Albert, new order to give lisinopril, norvasc, and metoprolol now.
[2022-09-02] MEDS ORDERED: metoprolol tartrate 50mg tablet PO ONE (01:50)
[2022-09-02] MEDS ORDERED: lisinopril 20mg tablet PO ONE (01:50)
[2022-09-02] MEDS ORDERED: amLODIPine 5mg tablet PO ONE (01:50)
[2022-09-02] MEDS: ondansetron/PF 4mg/2ml inj IV PRN ×2 (02:08→07:47)
[2022-09-02] MEDS: pantoprazole 40MG/NS 100ML BAG 100 ML IV SCH ×4 (02:14→13:54)
[2022-09-02] MEDS ORDERED: niCARDipine-NS 40mg/200ml IVPB 200 ML IV SCH (03:00)
[2022-09-02 05:55] LABS: BASOPHILS # (AUTO) 0.1 X10'3 (0-0.2); BASOPHILS % (AUTO) 1.1 % (0-1); EOSINOPHILS # (AUTO) 0.2 X10'3 (0-0.9); EOSINOPHILS % (AUTO) 2.6 % (0-6); HEMATOCRIT 34.5 % (35.0-45.0); HEMOGLOBIN 12.3 g/dl (12.0-16.0); LYMPHOCYTES # (AUTO) 1.2 X10'3 (1.1-4.8); LYMPHOCYTES % (AUTO) 15.5 % (21-51); MEAN CORPUSCULAR HEMOGLOBIN 32.9 PG (27.0-31.0); MEAN CORPUSCULAR HGB CONC 35.6 g/dL (33.0-36.5); MEAN CORPUSCULAR VOLUME 92.5 FL (78-98); MEAN PLATELET VOLUME 8.3 FL (7.4-10.4); MONOCYTES # (AUTO) 0.6 X10'3 (0-0.9); MONOCYTES % (AUTO) 8.1 % (2-12); NEUTROPHILS # (AUTO) 5.4 X10'3 (1.8-7.7); NEUTROPHILS % (AUTO) 72.7 % (42-75); PLATELET COUNT 203 X10'3 (140-440); RED BLOOD COUNT 3.73 X10'6 (4.20-5.60); WHITE BLOOD COUNT 7.5 X10'3 (4.5-11.0)
[2022-09-02] MEDS: normal saline 1000ml 1,000 ML IV SCH ×2 (06:03→23:36)
[2022-09-02 06:10] LABS: ALANINE AMINOTRANSFERASE 15 U/L (12-78); ALBUMIN 3.1 G/DL (3.4-5.0); ALBUMIN/GLOBULIN RATIO 1.1 (1.1-1.5); ALKALINE PHOSPHATASE 62 IU/L (46-116); ANION GAP 10 (8-16); ASPARTATE AMINO TRANSFERASE 26 U/L (10-37); BILIRUBIN,TOTAL 0.4 MG/DL (0.1-1.0); BLOOD UREA NITROGEN 2 MG/DL (7-18); BUN/CREATININE RATIO 2.4 (10.0-20.0); CALCIUM 8.6 MG/DL (8.5-10.1); CHLORIDE 108 MMOL/L (99-107); CREATININE 0.85 MG/DL (0.40-0.90); GLUCOSE 124 MG/DL (70-104); MAGNESIUM 1.4 MG/DL (1.5-2.4); POTASSIUM 3.4 MMOL/L (3.5-5.1); SODIUM 143 MMOL/L (135-145); TOTAL CARBON DIOXIDE 25.3 MMOL/L (24-32); TOTAL PROTEIN 5.8 G/DL (6.4-8.2); eGFR 68 ML/MIN
--- NOTE | 2022-09-02 07:16 | NUR ---
Problems reprioritized. Patient report given, questions answered & plan of care reviewed with Nneka WHYTE. Pt stable at shift change.
[2022-09-02] MEDS ORDERED: pantoprazole 40mg Tablet.DR PO SCH (07:30)
[2022-09-02] MEDS: piperacillin/tazo 3.375gm/50ml 50 ML IV SCH ×3 (07:49→23:36)
[2022-09-02] MEDS: nicotine 21mg patch - 24 hr TD SCH (07:58)
[2022-09-02] MEDS: K and/or MAG REPLACEMENT MC SCH ×2 (08:00→20:00)
[2022-09-02] MEDS: amLODIPine 5mg tablet PO SCH (08:02)
[2022-09-02] MEDS: lisinopril 20mg tablet PO SCH (08:03)
[2022-09-02] MEDS: atorvastatin 10mg tablet PO SCH (08:05)
[2022-09-02] MEDS: metoprolol tartrate 50mg tablet PO SCH ×2 (08:05→20:15)
[2022-09-02] MEDS: potassium Cl 20 mEq SR tablet PO PRN ×2 (08:07→13:11)
[2022-09-02] MEDS: ferrous sulfate 325mg tablet PO SCH ×3 (08:07→20:14)
[2022-09-02] MEDS: magnesium Cl slow-release 64mg tablet PO PRN (08:08)
[2022-09-02] MEDS ORDERED: hydrALAZINE 20mg/ml inj. IV PRN (08:30)
[2022-09-02] MEDS: diatr meglu/diatrizoate 30ml oral sol.-(3 dose) bottle PO SCH ×3 (10:34→17:03)
[2022-09-02] MEDS: morphine 2 MG/ML inj. syringe IV PRN ×2 (10:35→16:18)
[2022-09-02] MEDS: metoclopramide 5 mg/ml inj IV PRN (20:13)
[2022-09-02] MEDS: HYDROcodone/acetaminophen 10/325mg tab PO PRN (20:14)
[2022-09-02] MEDS: duloxetine 30mg CAPSULE.DR PO SCH (20:14)
--- NOTE | 2022-09-02 20:29 | NUR ---
Bernabe went and rounded on pt. Pt was asking nurse for food as she is really hungry. Nurse educated pt as to why she is on a full liquid diet and that eating would exacerbate the pain she is having d/t pancreatitis and diverticulitis. Pt was still addament about wanting to eat and stated " I just know I would feel better if I just had something in my stomach." Nurse gave pt jello and apple sauce. Provider notified.
--- NOTE | 2022-09-02 20:34 | NUR ---
spoke with Dr. Albert regarding pt having 3 episodes of diarrhea today that may be a side effect of the CT contrast and informed him pt was wanting to start eating again. MD gave new order for imodium 4mg Q4hrs PO and to advance diet as tolerated.
[2022-09-03] VITALS (7 sets, daily range): BP systolic 152–171; BP diastolic 61–77; PULSE 60–69; RESP 11–20; TEMP 97.6–99.6; O2SAT 95–97
[2022-09-03] MEDS: magnesium Cl slow-release 64mg tablet PO PRN ×3 (00:44→20:19)
[2022-09-03] MEDS: potassium Cl 20 mEq SR tablet PO PRN ×4 (00:44→20:19)
[2022-09-03] MEDS: loperamide 2mg capsule PO PRN ×3 (03:40→20:26)
[2022-09-03] MEDS: HYDROcodone/acetaminophen 10/325mg tab PO PRN ×2 (04:06→22:38)
--- NOTE | 2022-09-03 04:42 | NUR ---
pt having bouts of diarrhea this shift. PRN imodium given x1 this shift. pt c/o pain in her abdomen PRN pain medication given x2 this shift and was effective.
[2022-09-03 05:58] LABS: ALANINE AMINOTRANSFERASE 18 U/L (12-78); ALBUMIN 3.5 G/DL (3.4-5.0); ALBUMIN/GLOBULIN RATIO 1.2 (1.1-1.5); ALKALINE PHOSPHATASE 68 IU/L (46-116); ANION GAP 11 (8-16); ASPARTATE AMINO TRANSFERASE 29 U/L (10-37); BILIRUBIN,TOTAL 0.6 MG/DL (0.1-1.0); BLOOD UREA NITROGEN 3 MG/DL (7-18); BUN/CREATININE RATIO 3.1 (10.0-20.0); CALCIUM 8.8 MG/DL (8.5-10.1); CHLORIDE 104 MMOL/L (99-107); CREATININE 0.96 MG/DL (0.40-0.90); GLUCOSE 128 MG/DL (70-104); MAGNESIUM 1.4 MG/DL (1.5-2.4); POTASSIUM 3.2 MMOL/L (3.5-5.1); SODIUM 140 MMOL/L (135-145); TOTAL CARBON DIOXIDE 25.5 MMOL/L (24-32); TOTAL PROTEIN 6.5 G/DL (6.4-8.2); eGFR 59 ML/MIN
[2022-09-03 06:10] LABS: BASOPHILS # (AUTO) 0.1 X10'3 (0-0.2); BASOPHILS % (AUTO) 1.1 % (0-1); EOSINOPHILS # (AUTO) 0.3 X10'3 (0-0.9); EOSINOPHILS % (AUTO) 4.2 % (0-6); HEMATOCRIT 39.2 % (35.0-45.0); HEMOGLOBIN 13.8 g/dl (12.0-16.0); LYMPHOCYTES # (AUTO) 1.6 X10'3 (1.1-4.8); LYMPHOCYTES % (AUTO) 21.3 % (21-51); MEAN CORPUSCULAR HEMOGLOBIN 32.3 PG (27.0-31.0); MEAN CORPUSCULAR HGB CONC 35.2 g/dL (33.0-36.5); MEAN CORPUSCULAR VOLUME 91.9 FL (78-98); MEAN PLATELET VOLUME 8.2 FL (7.4-10.4); MONOCYTES # (AUTO) 0.8 X10'3 (0-0.9); MONOCYTES % (AUTO) 10.1 % (2-12); NEUTROPHILS # (AUTO) 4.8 X10'3 (1.8-7.7); NEUTROPHILS % (AUTO) 63.3 % (42-75); PLATELET COUNT 249 X10'3 (140-440); RED BLOOD COUNT 4.27 X10'6 (4.20-5.60); RED CELL DISTRIBUTION WIDTH 12.8 % (11.5-14.5); WHITE BLOOD COUNT 7.6 X10'3 (4.5-11.0)
--- NOTE | 2022-09-03 06:13 | NUR ---
Problems reprioritized. Patient report given, questions answered & plan of care reviewed with PATO Faith. Pt stable at shift change.
--- NOTE | 2022-09-03 07:09 | NUR ---
Patient in room PCU 3028. I have received report from PATO ARELLANO, and had the opportunity to ask questions and assume patient care.
[2022-09-03] MEDS: K and/or MAG REPLACEMENT MC SCH ×2 (08:00→20:32)
[2022-09-03] MEDS: ondansetron/PF 4mg/2ml inj IV PRN (08:52)
[2022-09-03] MEDS: morphine 2 MG/ML inj. syringe IV PRN ×2 (09:23→14:32)
[2022-09-03] MEDS: pantoprazole 40mg Tablet.DR PO SCH (09:31)
[2022-09-03] MEDS: nicotine 21mg patch - 24 hr TD SCH (09:31)
[2022-09-03] MEDS: lisinopril 20mg tablet PO SCH (09:32)
[2022-09-03] MEDS: ferrous sulfate 325mg tablet PO SCH ×3 (09:32→20:20)
[2022-09-03] MEDS: metoprolol tartrate 50mg tablet PO SCH ×2 (09:34→20:20)
[2022-09-03] MEDS: atorvastatin 10mg tablet PO SCH (09:34)
[2022-09-03] MEDS: amLODIPine 5mg tablet PO SCH (09:35)
[2022-09-03] MEDS: piperacillin/tazo 3.375gm/50ml 50 ML IV SCH ×2 (09:39→16:14)
--- NOTE | 2022-09-03 19:14 | NUR ---
Problems reprioritized. Patient report given, questions answered & plan of care reviewed with PATO ARELLANO.
[2022-09-03] MEDS: duloxetine 30mg CAPSULE.DR PO SCH (20:20)
[2022-09-03] MEDS: normal saline 1000ml 1,000 ML IV SCH (22:50)
[2022-09-04] MEDS: piperacillin/tazo 3.375gm/50ml 50 ML IV SCH ×2 (00:12→09:26)
[2022-09-04 02:37] VITALS: BP 165/74; PULSE 61; RESP 19; TEMP 98.5; O2SAT 93
[2022-09-04 05:55] LABS: HEMOGLOBIN 12.6 g/dl (12.0-16.0); MEAN CORPUSCULAR VOLUME 91.8 FL (78-98); MEAN PLATELET VOLUME 7.9 FL (7.4-10.4)
[2022-09-04 05:59] LABS: BASOPHILS # (AUTO) 0.1 X10'3 (0-0.2); BASOPHILS % (AUTO) 1.2 % (0-1); EOSINOPHILS # (AUTO) 0.3 X10'3 (0-0.9); EOSINOPHILS % (AUTO) 4.8 % (0-6); HEMATOCRIT 35.5 % (35.0-45.0); LYMPHOCYTES # (AUTO) 1.9 X10'3 (1.1-4.8); LYMPHOCYTES % (AUTO) 29.9 % (21-51); MEAN CORPUSCULAR HEMOGLOBIN 32.6 PG (27.0-31.0); MEAN CORPUSCULAR HGB CONC 35.5 g/dL (33.0-36.5); MONOCYTES # (AUTO) 0.7 X10'3 (0-0.9); MONOCYTES % (AUTO) 10.3 % (2-12); NEUTROPHILS # (AUTO) 3.5 X10'3 (1.8-7.7); NEUTROPHILS % (AUTO) 53.8 % (42-75); PLATELET COUNT 214 X10'3 (140-440); RED BLOOD COUNT 3.87 X10'6 (4.20-5.60); RED CELL DISTRIBUTION WIDTH 12.9 % (11.5-14.5); WHITE BLOOD COUNT 6.4 X10'3 (4.5-11.0)
[2022-09-04] MEDS: HYDROcodone/acetaminophen 10/325mg tab PO PRN (06:02)
[2022-09-04 06:06] VITALS: BP 154/71; PULSE 68; RESP 16; TEMP 98; O2SAT 98
[2022-09-04 06:10] LABS: ALANINE AMINOTRANSFERASE 16 U/L (12-78); ALBUMIN 2.8 G/DL (3.4-5.0); ALKALINE PHOSPHATASE 65 IU/L (46-116); ANION GAP 9 (8-16); ASPARTATE AMINO TRANSFERASE 28 U/L (10-37); BILIRUBIN,TOTAL 0.3 MG/DL (0.1-1.0); BLOOD UREA NITROGEN 6 MG/DL (7-18); BUN/CREATININE RATIO 6.1 (10.0-20.0); CALCIUM 8.2 MG/DL (8.5-10.1); CHLORIDE 109 MMOL/L (99-107); CREATININE 0.99 MG/DL (0.40-0.90); GLUCOSE 112 MG/DL (70-104); MAGNESIUM 1.4 MG/DL (1.5-2.4); SODIUM 143 MMOL/L (135-145); TOTAL CARBON DIOXIDE 25.1 MMOL/L (24-32); TOTAL PROTEIN 5.5 G/DL (6.4-8.2); eGFR 57 ML/MIN
[2022-09-04 06:16] LABS: POTASSIUM 3.6 MMOL/L (3.5-5.1)
--- NOTE | 2022-09-04 06:53 | NUR ---
Problems reprioritized. Patient report given, questions answered & plan of care reviewed with Hermilo WHYTE. Pt stable at shift change.
[2022-09-04 07:45] VITALS: RESP 16; O2SAT 98
[2022-09-04] MEDS: normal saline 1000ml 1,000 ML IV SCH (07:49)
[2022-09-04] MEDS: K and/or MAG REPLACEMENT MC SCH (07:50)
[2022-09-04] MEDS ORDERED: potassium Cl 40MEQ/1/2NS 520ml 520 ML IV PRN (09:20)
[2022-09-04] MEDS ORDERED: potassium Cl 20 mEq SR tablet PO PRN ×2 (09:20)
[2022-09-04] MEDS ORDERED: magnesium 2GM in 50ml NS 50 ML IV PRN (09:20)
[2022-09-04] MEDS ORDERED: magnesium 4gm in 100ml NS 100 ML IV PRN (09:20)
[2022-09-04] MEDS ORDERED: magnesium Cl slow-release 64mg tablet PO PRN (09:20)
[2022-09-04] MEDS: atorvastatin 10mg tablet PO SCH (09:26)
[2022-09-04] MEDS: ferrous sulfate 325mg tablet PO SCH ×2 (09:26→13:12)
[2022-09-04] MEDS: nicotine 21mg patch - 24 hr TD SCH (09:26)
[2022-09-04] MEDS: metoprolol tartrate 50mg tablet PO SCH (09:27)
[2022-09-04] MEDS: lisinopril 20mg tablet PO SCH (09:29)
[2022-09-04] MEDS: pantoprazole 40mg Tablet.DR PO SCH (09:29)
[2022-09-04] MEDS: amLODIPine 5mg tablet PO SCH (09:30)
[2022-09-04] MEDS ORDERED: metoclopramide 10mg tablet PO PRN (09:50)
[2022-09-04] MEDS ORDERED: HYDR-3973 PO (10:07)
[2022-09-04] MEDS ORDERED: LEVO-65 PO (10:07)
[2022-09-04] MEDS ORDERED: METR-159 PO (10:07)
[2022-09-04 11:11] VITALS: BP 181/75; PULSE 65; RESP 14; TEMP 97.7; O2SAT 98
[2022-09-04] MEDS ORDERED: K and/or MAG REPLACEMENT MC SCH (20:00)
== END 2022-09-04 14:10 | disposition home or self-care (01) | DRG 392 ==
LOC: ER 22:10 → ED HOLD 08-31 01:32 → PCU 3S 08-31 04:20
PROVIDERS: ADMIT Family Medicine; ATTEND Internal Medicine
DX: K57.30 Diverticulosis of large intestine without perforation or abscess without bleeding (principal); N17.9 Acute kidney failure, unspecified; K52.9 Noninfective gastroenteritis and colitis, unspecified; E11.22 Type 2 diabetes mellitus with diabetic chronic kidney disease; G89.4 Chronic pain syndrome; I12.9 Hypertensive chronic kidney disease with stage 1 through stage 4 chronic kidney disease, or unspecified chronic kidney disease; I25.10 Atherosclerotic heart disease of native coronary artery without angina pectoris; I25.2 Old myocardial infarction; I48.0 Paroxysmal atrial fibrillation; J44.9 Chronic obstructive pulmonary disease, unspecified; E78.5 Hyperlipidemia, unspecified; E87.6 Hypokalemia; K76.0 Fatty (change of) liver, not elsewhere classified; N18.9 Chronic kidney disease, unspecified; Z79.01 Long term (current) use of anticoagulants; Z87.442 Personal history of urinary calculi; Z87.891 Personal history of nicotine dependence; Z88.0 Allergy status to penicillin; Z88.2 Allergy status to sulfonamides; Z90.49 Acquired absence of other specified parts of digestive tract; Z90.710 Acquired absence of both cervix and uterus
CPT/HCPCS: 36415; 74176; 80053; 80061; 80305; 81001; 81003; 81025; 82550; 83036; 83605; 83690; 83735; 83880; 84100; 84145; 84443; 85025; 85610; 85730; 86885; 86900; 86901; 87040; 87081; 96361; 96365; 96366; 96375; 99285; A4615; C9113; G0378; J1200; J1885; J2060; J2270; J2405; J2543; J2765; J3430; J3480; J3490; J7030; J7040; Q9963

== ENCOUNTER 2023-11-13 07:50 | Outpatient (CLI) | payer MEDICARE, MEDICAID ==
[~2023-11-13 07:50] MED LIST changes: -AMOX-580 PO; +BISA-78 PO; -LEVO750T68 PO; -METR-159 PO; -ONDA-103 PO; -ONDA4TAB12 PO; -POTA-207 PO
[2023-11-13] MEDS ORDERED: iohexol 350MG/ML 100ml bottle IV ONE (08:10)
[2023-11-13 08:29] LABS: ALBUMIN 3.4 G/DL (3.4-5.0); ANION GAP 7 (8-16); CALCIUM 8.9 MG/DL (8.5-10.1); CHLORIDE 107 MMOL/L (99-107); CREATININE 1.01 MG/DL (0.40-0.90); GLUCOSE 153 MG/DL (70-104); POTASSIUM 4.1 MMOL/L (3.5-5.1); SODIUM 143 MMOL/L (135-145); TOTAL CARBON DIOXIDE 29.2 MMOL/L (24-32); eGFR 55 ML/MIN
[2023-11-13 08:47] LABS: BLOOD UREA NITROGEN 10 MG/DL (7-18); BUN/CREATININE RATIO 9.9 (10.0-20.0)
== END 2023-11-13 23:59 | disposition home or self-care (01) ==
LOC: RAD 07:50
PROVIDERS: ATTEND Internal Medicine Interventional Cardiology
DX: I51.7 Cardiomegaly (principal); E04.1 Nontoxic single thyroid nodule; R07.9 Chest pain, unspecified; I44.1 Atrioventricular block, second degree; R94.31 Abnormal electrocardiogram [ECG] [EKG]
CPT/HCPCS: 36415; 71275; 80048; Q9967

== ENCOUNTER 2024-02-27 18:58 | Emergency (ER) | payer MEDICARE, MEDICAID ==
[~2024-02-27] VITALS: Ht 175.3 cm; Wt 65.4 kg
[2024-02-27 19:12] VITALS: TEMP 97.8
[2024-02-27 20:14] LABS: BASOPHILS # (AUTO) 0.1 X10'3 (0-0.2); BASOPHILS % (AUTO) 1.3 % (0-1); EOSINOPHILS # (AUTO) 0.1 X10'3 (0-0.9); EOSINOPHILS % (AUTO) 1.5 % (0-6); HEMOGLOBIN 9.6 g/dl (12.0-16.0); LYMPHOCYTES # (AUTO) 1.2 X10'3 (1.1-4.8); LYMPHOCYTES % (AUTO) 14.8 % (21-51); MEAN CORPUSCULAR HEMOGLOBIN 26.3 PG (27.0-31.0); MEAN CORPUSCULAR HGB CONC 33.1 g/dL (33.0-36.5); MEAN CORPUSCULAR VOLUME 79.6 FL (78-98); MEAN PLATELET VOLUME 7.9 FL (7.4-10.4); MONOCYTES # (AUTO) 0.8 X10'3 (0-0.9); MONOCYTES % (AUTO) 9.6 % (2-12); NEUTROPHILS # (AUTO) 5.7 X10'3 (1.8-7.7); NEUTROPHILS % (AUTO) 72.8 % (42-75); PLATELET COUNT 265 X10'3 (140-440); RED BLOOD COUNT 3.64 X10'6 (4.20-5.60); RED CELL DISTRIBUTION WIDTH 15.7 % (11.5-14.5); WHITE BLOOD COUNT 7.8 X10'3 (4.5-11.0)
[2024-02-27 20:30] LABS: ALANINE AMINOTRANSFERASE 40 U/L (12-78); ALBUMIN 3.2 G/DL (3.4-5.0); ALBUMIN/GLOBULIN RATIO 1.1 (1.1-1.5); ALKALINE PHOSPHATASE 73 IU/L (46-116); ANION GAP 6 (8-16); ASPARTATE AMINO TRANSFERASE 35 U/L (10-37); BILIRUBIN,TOTAL 0.5 MG/DL (0.1-1.0); BLOOD UREA NITROGEN 12 MG/DL (7-18); BUN/CREATININE RATIO 10.9 (10.0-20.0); CALCIUM 8.4 MG/DL (8.5-10.1); CHLORIDE 106 MMOL/L (99-107); GLUCOSE 87 MG/DL (70-104); LIPASE 50 U/L (16-77); SODIUM 141 MMOL/L (135-145); TOTAL CARBON DIOXIDE 28.9 MMOL/L (24-32); TOTAL PROTEIN 6.2 G/DL (6.4-8.2); eCRCL 53 ML/MIN; eGFR 50 ML/MIN
[2024-02-27 22:19] LABS: URINE HCG NEGATIVE (NEG)
[2024-02-27 22:21] LABS: BILIRUBIN,URINE NEGATIVE (Neg); CLARITY,URINE CLEAR (Clear); COLOR,URINE YELLOW (Yellow); GLUCOSE, URINE NEGATIVE (Neg); KETONES,URINE NEGATIVE (Neg); LEUKOCYTE ESTERASE ,URINE NEGATIVE (Neg); NITRITES, URINE NEGATIVE (Neg); OCCULT BLOOD,URINE NEGATIVE (Neg); PH,URINE 7.5 (4.8-8.0); PROTEIN,URINE 30 mg/dl (Neg); UROBILINOGEN,URINE 0.2 E.U/dL (0.2-1.0)
[2024-02-27 22:23] LABS: UA COLLECTION TYPE VOIDED
[2024-02-27 22:26] LABS: BACTERIA,URINE NONE SEEN /HPF (Neg); RBC,URINE NONE SEEN /HPF (0-2); SQUAMOUS EPITHELIAL CELL,UR NONE SEEN /LPF (FEW); WBC,URINE NONE SEEN /HPF (0-4)
[2024-02-27] MEDS ORDERED: iohexol 300mg/ml 100ml inj. ONE (23:07)
[2024-02-28] MEDS: ondansetron/PF 4mg/2ml inj IV ONE
[2024-02-28] MEDS: fentaNYL/PF 50MCG/1 ML 2ML syringe IV ONE (00:01)
[2024-02-28] MEDS: normal saline 1000ml 1,000 ML IV ONE (00:01)
[2024-02-28] MEDS ORDERED: diphenhydrAMINE 50 mg/ml inj IV ONE (00:30)
[2024-02-28] MEDS ORDERED: POLY119P2 PO (01:57)
[2024-02-28] MEDS ORDERED: DICY10CA88 PO (01:57)
[2024-02-28] MEDS: ketorolac trometh 15mg/ml vial 15 MG/ML ML IV ONE (02:29)
[2024-02-28] MEDS: bisacodyl 5mg tablet.DR PO ONE (02:30)
[2024-02-28] MEDS: dicyclomine 10 MG capsule PO ONE (02:30)
[2024-02-28] MEDS: acetaminophen 325mg tablet PO ONE (02:30)
[2024-02-28 02:36] VITALS: BP 175/82; PULSE 64; RESP 19; O2SAT 94
== END 2024-02-28 02:43 | disposition home or self-care (01) ==
LOC: ER 18:59
DX: K59.00 Constipation, unspecified (principal); R10.84 Generalized abdominal pain; I25.2 Old myocardial infarction; I25.10 Atherosclerotic heart disease of native coronary artery without angina pectoris; I10 Essential (primary) hypertension; E11.9 Type 2 diabetes mellitus without complications; K21.9 Gastro-esophageal reflux disease without esophagitis; J44.9 Chronic obstructive pulmonary disease, unspecified; I48.91 Unspecified atrial fibrillation; Z85.41 Personal history of malignant neoplasm of cervix uteri; Z95.0 Presence of cardiac pacemaker; Z90.49 Acquired absence of other specified parts of digestive tract; Z90.710 Acquired absence of both cervix and uterus; Z98.51 Tubal ligation status; Z88.0 Allergy status to penicillin; Z88.2 Allergy status to sulfonamides; Z88.5 Allergy status to narcotic agent; Z88.1 Allergy status to other antibiotic agents; Z88.8 Allergy status to other drugs, medicaments and biological substances; Z91.041 Radiographic dye allergy status; Z79.01 Long term (current) use of anticoagulants; Z79.899 Other long term (current) drug therapy
CPT/HCPCS: 36415; 74176; 80053; 81001; 81025; 83690; 85025; 96361; 96374; 96375; 99285; J1885; J2405; J3010; J7030; 99284; Q9967

== ENCOUNTER 2024-04-24 20:11 | Emergency (ER) | payer MEDICARE, MEDICAID ==
[~2024-04-24] VITALS: Ht 175.3 cm; Wt 71.6 kg
[~2024-04-24 20:11] MED LIST changes: +POLY119P2 PO
[2024-04-24 20:13] VITALS: TEMP 98
[2024-04-24 20:46] LABS: BILIRUBIN,URINE NEGATIVE (Neg); CLARITY,URINE CLEAR (Clear); COLOR,URINE YELLOW (Yellow); GLUCOSE, URINE NEGATIVE (Neg); KETONES,URINE NEGATIVE (Neg); LEUKOCYTE ESTERASE ,URINE NEGATIVE (Neg); NITRITES, URINE NEGATIVE (Neg); OCCULT BLOOD,URINE NEGATIVE (Neg); PROTEIN,URINE 100 mg/dl (Neg); UROBILINOGEN,URINE 0.2 E.U/dL (0.2-1.0)
[2024-04-24 20:48] LABS: BASOPHILS # (AUTO) 0.1 X10'3 (0-0.2); BASOPHILS % (AUTO) 1.1 % (0-1); EOSINOPHILS # (AUTO) 0.1 X10'3 (0-0.9); HEMATOCRIT 35.3 % (35.0-45.0); HEMOGLOBIN 11.6 g/dl (12.0-16.0); LYMPHOCYTES # (AUTO) 2.1 X10'3 (1.1-4.8); LYMPHOCYTES % (AUTO) 22.5 % (21-51); MEAN CORPUSCULAR HEMOGLOBIN 25.2 PG (27.0-31.0); MEAN CORPUSCULAR HGB CONC 32.9 g/dL (33.0-36.5); MEAN CORPUSCULAR VOLUME 76.7 FL (78-98); MEAN PLATELET VOLUME 7.7 FL (7.4-10.4); MONOCYTES # (AUTO) 0.6 X10'3 (0-0.9); MONOCYTES % (AUTO) 6.7 % (2-12); NEUTROPHILS # (AUTO) 6.4 X10'3 (1.8-7.7); NEUTROPHILS % (AUTO) 68.7 % (42-75); PLATELET COUNT 295 X10'3 (140-440); RED BLOOD COUNT 4.61 X10'6 (4.20-5.60); RED CELL DISTRIBUTION WIDTH 16.8 % (11.5-14.5); WHITE BLOOD COUNT 9.3 X10'3 (4.5-11.0)
[2024-04-24 20:49] LABS: UA COLLECTION TYPE CLN CATCH MIDSTREAM
[2024-04-24 21:01] LABS: BACTERIA,URINE FEW /HPF (Neg); RBC,URINE 0-2 /HPF (0-2); SQUAMOUS EPITHELIAL CELL,UR NONE SEEN /LPF (FEW); WBC,URINE 0-4 /HPF (0-4)
[2024-04-24 21:36] LABS: ALANINE AMINOTRANSFERASE 16 U/L (12-78); ALBUMIN 3.7 G/DL (3.4-5.0); ALKALINE PHOSPHATASE 83 IU/L (46-116); ANION GAP 6 (8-16); ASPARTATE AMINO TRANSFERASE 18 U/L (10-37); BILIRUBIN,TOTAL 0.3 MG/DL (0.1-1.0); BLOOD UREA NITROGEN 9 MG/DL (7-18); BUN/CREATININE RATIO 9.3 (10.0-20.0); CALCIUM 9.1 MG/DL (8.5-10.1); CHLORIDE 102 MMOL/L (99-107); CREATININE 0.97 MG/DL (0.40-0.90); GLUCOSE 126 MG/DL (70-104); LIPASE 27 U/L (16-77); POTASSIUM 3.9 MMOL/L (3.5-5.1); SODIUM 138 MMOL/L (135-145); TOTAL CARBON DIOXIDE 30.1 MMOL/L (24-32); TOTAL PROTEIN 7.4 G/DL (6.4-8.2); eCRCL 61 ML/MIN; eGFR 58 ML/MIN
[2024-04-24 23:24] LABS: URINE HCG NEGATIVE (NEG)
[2024-04-24] MEDS ORDERED: iohexol 300mg/ml 100ml inj. ONE (23:42)
[2024-04-24 23:50] LABS: INR 1.1 INR; PROTHROMBIN TIME 11.8 SECONDS (9.0-12.0)
[2024-04-25 01:31] VITALS: RESP 16
[2024-04-25] MEDS ORDERED: METR-159 PO (01:58)
[2024-04-25] MEDS ORDERED: CIPR-202 PO (01:58)
[2024-04-25] MEDS: metroNIDAZOLE 500mg tablet PO ONE (02:03)
[2024-04-25] MEDS: ciprofloxacin 250mg tablet PO ONE (02:14)
[2024-04-25 02:30] VITALS: BP 156/85; PULSE 58; O2SAT 97
== END 2024-04-25 03:00 | disposition home or self-care (01) ==
LOC: ER 20:12
DX: K57.92 Diverticulitis of intestine, part unspecified, without perforation or abscess without bleeding (principal); J44.9 Chronic obstructive pulmonary disease, unspecified; I48.91 Unspecified atrial fibrillation; I10 Essential (primary) hypertension; K21.9 Gastro-esophageal reflux disease without esophagitis; I25.10 Atherosclerotic heart disease of native coronary artery without angina pectoris; E11.9 Type 2 diabetes mellitus without complications; Z85.41 Personal history of malignant neoplasm of cervix uteri; F12.90 Cannabis use, unspecified, uncomplicated; F17.200 Nicotine dependence, unspecified, uncomplicated; Z88.5 Allergy status to narcotic agent; Z88.1 Allergy status to other antibiotic agents; Z88.0 Allergy status to penicillin; Z88.2 Allergy status to sulfonamides; Z91.041 Radiographic dye allergy status; Z88.8 Allergy status to other drugs, medicaments and biological substances; Z90.49 Acquired absence of other specified parts of digestive tract; Z95.0 Presence of cardiac pacemaker; Z90.710 Acquired absence of both cervix and uterus; Z79.4 Long term (current) use of insulin
CPT/HCPCS: 36415; 74177; 80053; 81001; 81025; 83690; 85025; 85610; 99285; Q9967